=== PATIENT | male | born 1965 | race Caucasian/White ===

== ENCOUNTER 2018-09-07 17:20 | Inpatient (IN) | payer OTHER ==
[2018-09-07] MEDS ORDERED: HYDROmorphone 1 MG/ML Syringe IVPUSH ONE (18:07)
[2018-09-07] MEDS ORDERED: Metoclopramide 10 MG/2 ML SDV IVPUSH ONE (18:07)
[2018-09-07] MEDS ORDERED: Ibuprofen 600 MG Tab PO ONE (18:07)
--- NOTE | 2018-09-07 18:12 | EDM.PDOC ---
ED HPI GENERAL MEDICAL PROBLEM - General Chief Complaint: Fever Stated Complaint: BODY ACHE/WEAK/FEVER Time Seen by Provider: 09/07/18 18:05 Source of Information: Reports: Patient History Limitations: Reports: No Limitations - History of Present Illness INITIAL COMMENTS - FREE TEXT/NARRATIVE: 53-year-old male presents to the ED from the [place] clinic where he attended PA today. She reports she's been sick for 5 days. Sudden onset of high fever body aches heart paroxysmal cough. Hasn't eaten in 5 days. Extremely weak. O2 sats on admission to the ED were only 74%. He also had central cyanosis. Was immediately on nasal cannula at 3 L/m and ends 5 L/m and still could not get above 90%. Nursing staff and placed him on a nonrebreather mask at 10 L/m which achieved O2 sats of 96%. Has pleuritic pain base of his right lung with deep breathing and coughing. States he is coughing up a brownish discharge without any blood. He initially had no ONSET OF NAUSEA AND VOMITING WITH ILLNESS BUT NO DIARRHEA. EXTREMELY WEAK LIGHTHEADED. HE IS FEBRILE AT THE TIME OF ADMISSION TO THE ED. EACH CRITERIA FOR SEPSIS. Temperature is nearly 104. Blood pressure is good at 150 systolic. Patient states she's been taking Tylenol and meloxicam for fever and body ache relief patient did not receive a flu shot this year. Onset: Sudden Onset Date: 09/02/18 Duration: Day(s):, Constant, Getting Worse Location: Reports: Chest (Severe harsh paroxysmal productive cough.) Quality: Reports: Other (Generalized myalgia) Severity: Severe (Severe shortness of breath on minimal exertion) Improves with: Reports: Rest Worsens with: Reports: Movement Context: Reports: Sick Contact (Another fellow at work was ill with influenza A. ). Denies: Activity, Exercise (Reactivity place amount immediately as far as dyspnea.), Lifting Associated Symptoms: Reports: Chest Pain (With coughing.), Cough, cough w sputum ( Some pleuritic pain basal right lung is well), Diaphoresis, Fever/ Chills ( H colored sputum ), Headaches, Loss of Appetite, Malaise, Nausea/ Vomiting, Shortness of Breath, Weakness (With initial onset of illness he hasn' t had a feed or drink much for the last 5 days.). Denies: Confusion, Rash, Seizure, Syncope Treatments [employer]: Reports: Acetaminophen, Other (see below) (Meloxicam) - Related Data Allergies Allergy/AdvReac Type Severity Reaction Status Date / Time No Known Allergies Allergy Verified 07/22/16 14:01 Home Meds: Home Meds Cholecalciferol (Vitamin D3) [Vitamin D3] 1,000 units PO DAILY 07/22/16 [History ] Fosinopril Sodium 40 mg PO DAILY 07/22/16 [History] Meloxicam 15 mg PO DAILY 07/22/16 [History] Metoprolol Tartrate [Lopressor] 25 mg PO BID 07/22/16 [History] Furosemide [Lasix] 20 mg PO DAILY 09/07/18 [History] Potassium Chloride 1 tab PO DAILY 09/07/18 [History] metFORMIN [Glucophage XR] 1,000 mg PO BIDMEALS 09/07/18 [History] Past Medical History Cardiovascular History: Reports: Hypertension Respiratory History: Reports: None Gastrointestinal History: Reports: None - Past Surgical History Other Musculoskeletal Surgeries/Procedures:: patient had surgery on his right hand. 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 Denies: Pleuritic Chest Pain, Hemoptysis (Brown colored sputum) Cardiovascular: Reports: Chest Pain, Blood Pressure Problem (With deep breathing and coughing), Dyspnea on Exertion (Chronic lower extremity edema and venous stasis dermatitis), Edema, Lightheadedness. Denies: Claudication, Orthopnea ( mild hypertension) Endocrine: Reports: Fatigue GI/Abdominal: Reports: Decreased Appetite, Nausea, Vomiting (Intermittent waves of nausea running at onset of illness but not the last 2 days.). Denies: Diarrhea : Reports: Other (Hardly making any urine. States it's very dark and gilbret.) Musculoskeletal: Reports: Other (Generalized myalgia. Heart Rk's neck back thighs) Skin: Reports: Other (Chronic venous venous stasis dermatitis both lower extremities with very dry skin.) Neurological: Reports: Dizziness, Headache, Difficulty Walking, Weakness. Denies: Paresthesia, Seizure, Syncope, Tremors, Change in Speech, Gait Disturbance Psychiatric: Reports: No Symptoms Hematologic/Lymphatic: Reports: No Symptoms Immunologic: Reports: No Symptoms ED EXAM, GENERAL - Physical Exam Exam: See Below Exam Limited By: No Limitations General Appearance: Alert, WD/WN, Moderate Distress, Other (Productive sounding cough.) Eye Exam: Bilateral Eye: Normal Inspection Ears: Normal TMs Throat/Mouth: Other (Tongue is dry and coated. Oropharynx is mildly inflamed-- no exudate. Appears to be more inflamed from coughing.) Head: Atraumatic, Normocephalic Neck: Normal Inspection, Supple, Non-Tender, Full Range of Motion. No: Lymphadenopathy (L), Lymphadenopathy (R) Respiratory/Chest: Chest Non-Tender, Respiratory Distress (26-28/m. O2 sats only 74% on initial admission with central cyanosis), Decreased Breath Sounds ( expiratory wheezes. decreased breath sounds to the lower right lung. ), Rales ( Rhonchi throughout the posterior right lung field), Rhonchi, Wheezing ( rales right lung field) Cardiovascular: Normal Peripheral Pulses, Regular Rate, Rhythm, No Edema, No Gallop, No Murmur, No Rub, Tachycardia, Systolic Murmur (A1 on his 6 best heard at the left lateral sternal border compatible with mild aortic stenosis.) Peripheral Pulses: 2+: Posterior Tibial (L), Posterior Tibial (R), Dorsalis Pedis (L), Dorsalis Pedis (R) GI/Abdominal: Normal Bowel Sounds, Soft, Non-Tender, No Organomegaly, No Abnormal Bruit, No Mass, Pelvis Stable, Other (Moderately obese.). No: Guarding , Rigid, Rebound, Tender Back Exam: Normal Inspection, Full Range of Motion. No: CVA Tenderness (L), CVA Tenderness (R) Extremities: Normal Range of Motion, Non-Tender, Pedal Edema (2+ pitting edema) , Other ( distal one third of the tib-fib bilaterally.) Neurological: Alert (venous stasis dermatitis both lower extremities with very dry scaly skin. ), Oriented, CN II-XII Intact, Normal Cognition Psychiatric: Anxious Skin Exam: Warm, Dry, Intact, Normal Color, No Rash EKG INTERPRETATION EKG Date: 09/07/18 Time: 18:20 Rhythm: NSR Rate (Beats/Min): 97 [place]: Normal P-Wave: Present QRS: Other (There are Q waves V1 and V2. Consider old anteroseptal myocardial infarction patient has no history of [place].) ST-T: Other QT: Normal EKG Interpretation Comments: Abnormal ECG Course - Vital Signs Last Recorded V/S: Last Vital Signs Temp 39.7 C H 09/07/18 17:33 Pulse 105 H 09/07/18 17:33 Resp 26 H 09/07/18 17:33 BP 150/92 H 09/07/18 17:33 Pulse Ox 74 L 09/07/18 17:33 - Orders/Labs/Meds Orders: Active Orders 24 hr Category Date Time Status Admission Status [Patient Status] [ADT] Routine ADT 09/07/18 20:38 Ordered EKG Documentation Completion [RC] STAT Care 09/07/18 18:07 Active Oxygen Therapy [RC] ASDIRECTED Care 09/07/18 18:09 Active Chest 1V Frontal [CR] Stat Exams 09/07/18 18:07 Taken CULTURE BLOOD [BC] Stat Lab 09/07/18 18:30 Received CULTURE BLOOD [BC] Stat Lab 09/07/18 18:45 Received Dextrose 5%-0.9% NaCl [Dextrose 5%-Normal Saline] 1,000 Med 09/07/18 18:15 Active ml IV ASDIRECTED Dextrose 5%-0.9% NaCl [Dextrose 5%-Normal Saline] 1,000 Med 09/07/18 20:45 Active ml IV ASDIRECTED Blood Culture x2 Reflex Set [OM.PC] Stat Oth 09/07/18 18:09 Ordered Medication Orders Dextrose/Sodium Chloride (Dextrose 5%-Normal Saline) 1,000 mls @ 999 mls/hr IV ASDIRECTED ABIEL Last Admin: 09/07/18 19:08 Dose: 999 mls/hr Dextrose/Sodium Chloride (Dextrose 5%-Normal Saline) 1,000 mls @ 200 mls/hr IV ASDIRECTED ABIEL Labs: Laboratory Tests 09/07/18 09/07/18 09/07/18 Range/Units 17:54 17:54 17:54 WBC 3.73 L (4.23-9.07) K/mm3 RBC 5.52 (4.63-6.08) M/mm3 Hgb 16.4 (13.7-17.5) gm/L Hct 50.1 (40.1-51.0) % MCV 90.8 (79.0-92.2) fl MCH 29.7 (25.7-32.2) pg MCHC 32.7 (32.2-35.5) g/dl RDW Std Deviation 47.0 H (35.1-43.9) fL Plt Count 144 L (163-337) K/mm3 MPV 9.7 (9.4-12.3) fl Neutrophils % (Manual) 80 H (40-60) % Band Neutrophils % 2 (0-10) % Lymphocytes % (Manual) 13 L (20-40) % Atypical Lymphs % 0 % Monocytes % (Manual) 5 (2-10) % Eosinophils % (Manual) 0 L (0.8-7.0) % Basophils % (Manual) 0 L (0.2-1.2) Platelet Estimate Adequate RBC Morph Comment Normal Puncture Site ABG pH (7.35-7.45) ABG pCO2 (35.0-45.0) mmHg ABG pO2 (80.0-100.0) mmHg ABG HCO3 (22.0-26.0) meq/L ABG O2 Saturation (96.0-97.0) % ABG Base Excess (-2-2.0) A-a Gradient mmHg O2 Delivery Device Oxygen Flow Rate FiO2 (21.00-100.00) % Sodium 136 (136-145) mEq/L Potassium 4.1 (3.5-5.1) mEq/L Chloride 100 (98-107) mEq/L Carbon Dioxide 28 (21-32) mEq/L Anion Gap 12.1 (5-15) BUN 21 H (7-18) mg/dL Creatinine 1.1 (0.7-1.3) mg/dL Est Cr Clr Drug Dosing 83.28 mL/min Estimated GFR (MDRD) > 60 (>60) mL/min BUN/Creatinine Ratio 19.1 H (14-18) Glucose 145 H (74-106) mg/dL Lactic Acid (0.4-2.0) mmol/L Calcium 8.6 (8.5-10.1) mg/dL Magnesium 1.7 L (1.8-2.4) mg/dl Total Bilirubin 0.3 (0.2-1.0) mg/dL AST 64 H (15-37) U/L ALT 61 (16-63) U/L Alkaline Phosphatase 54 (46-116) U/L Troponin I 0.017 (0.00-0.056) ng/mL C-Reactive Protein 19.2 H* (<1.0) mg/dL NT-Pro-B Natriuret Pep 37 (0-125) pg/mL Total Protein 7.2 (6.4-8.2) g/dl Albumin 2.6 L (3.4-5.0) g/dl Globulin 4.6 gm/dL Albumin/Globulin Ratio 0.6 L (1-2) Mycoplasma pneumon IgM Negative (NEGATIVE) 09/07/18 09/07/18 Range/Units 18:26 18:30 WBC (4.23-9.07) K/mm3 RBC (4.63-6.08) M/mm3 Hgb (13.7-17.5) gm/L Hct (40.1-51.0) % MCV (79.0-92.2) fl MCH (25.7-32.2) pg MCHC (32.2-35.5) g/dl RDW Std Deviation (35.1-43.9) fL Plt Count (163-337) K/mm3 MPV (9.4-12.3) fl Neutrophils % (Manual) (40-60) % Band Neutrophils % (0-10) % Lymphocytes % (Manual) (20-40) % Atypical Lymphs % % Monocytes % (Manual) (2-10) % Eosinophils % (Manual) (0.8-7.0) % Basophils % (Manual) (0.2-1.2) Platelet Estimate RBC Morph Comment Puncture Site Lt radial ABG pH 7.43 (7.35-7.45) ABG pCO2 44.4 (35.0-45.0) mmHg ABG pO2 67.0 L (80.0-100.0) mmHg ABG HCO3 28.9 H (22.0-26.0) meq/L ABG O2 Saturation 90.8 L (96.0-97.0) % ABG Base Excess 4.4 H (-2-2.0) A-a Gradient 134 mmHg O2 Delivery Device Nasal cannula Oxygen Flow Rate 5.0 FiO2 40.00 (21.00-100.00) % Sodium (136-145) mEq/L Potassium (3.5-5.1) mEq/L Chloride (98-107) mEq/L Carbon Dioxide (21-32) mEq/L Anion Gap (5-15) BUN (7-18) mg/dL Creatinine (0.7-1.3) mg/dL Est Cr Clr Drug Dosing mL/min Estimated GFR (MDRD) (>60) mL/min BUN/Creatinine Ratio (14-18) Glucose (74-106) mg/dL Lactic Acid 0.9 (0.4-2.0) mmol/L Calcium (8.5-10.1) mg/dL Magnesium (1.8-2.4) mg/dl Total Bilirubin (0.2-1.0) mg/dL AST (15-37) U/L ALT (16-63) U/L Alkaline Phosphatase (46-116) U/L Troponin I (0.00-0.056) ng/mL C-Reactive Protein (<1.0) mg/dL NT-Pro-B Natriuret Pep (0-125) pg/mL Total Protein (6.4-8.2) g/dl Albumin (3.4-5.0) g/dl Globulin gm/dL Albumin/Globulin Ratio (1-2) Mycoplasma pneumon IgM (NEGATIVE) Meds: Medications Generic Name Dose Route Start Last Admin Trade Name Freq PRN Reason Stop Dose Admin Dextrose/Sodium Chloride 1,000 mls @ 999 mls/hr 09/07/18 18:15 09/07/18 19:08 Dextrose 5%-Normal Saline IV 999 mls/hr ASDIRECTED ABIEL Administration Dextrose/Sodium Chloride 1,000 mls @ 200 mls/hr 09/07/18 20:45 Dextrose 5%-Normal Saline IV ASDIRECTED ABIEL Discontinued Medications Generic Name Dose Route Start Last Admin Trade Name Freq PRN Reason Stop Dose Admin Acetaminophen 975 mg 09/07/18 20:01 09/07/18 20:10 Tylenol PO 09/07/18 20:02 975 mg NOW ONE Administration Hydromorphone HCl 1 mg 09/07/18 18:07 09/07/18 19:02 Dilaudid IVPUSH 09/07/18 18:08 1 mg ONETIME ONE Administration Levofloxacin/Dextrose 750 mg/ 150 mls @ 100 mls/hr 09/07/18 19:08 09/07/18 20 :08 Premix IV 09/07/18 20:37 100 mls/hr ONETIME ONE Administration Ibuprofen 600 mg 09/07/18 18:07 09/07/18 19:07 Motrin PO 09/07/18 18:08 600 mg ONETIME ONE Administration Metoclopramide HCl 10 mg 09/07/18 18:07 09/07/18 19:04 Reglan IVPUSH 09/07/18 18:08 10 mg ONETIME ONE Administration - Radiology Interpretation Free Text/Narrative:: 53-year-old male presents to the ED from the [place] clinic where he attended nurse practitioner. He has been ill for 5 days with sudden onset of rigors chills and initially some nausea and vomiting. He states he has not been able to eat or drink much at all for the last 5 days. He has been exposed to a coworker with influenza A. He did not receive a flu shot this year. Examination reveals him to be hypoxic on room air at 74%. He is somewhat peripherally vasoconstricted however from dehydration. Initial treatment with nonrebreather mask at 10 L/m to get him up into the 90s. He is currently on 5 L/m by nasal cannula with O2 sats of 92-93%. Plan ABGs. Chest x-ray because clinically he likely has right lower lobar pneumonia. He is febrile with a temp to 104 and will receive Motrin 600 mg by mouth for fever relief. IV will be D5 normal saline at open. Septic workup will be completed. This will include influenza screen. - Re-Assessments/Exams Free Text/Narrative Re-Assessment/Exam: 09/07/18 19:00: Chest x-ray reveals bilateral pneumonic infiltrates. This involves all 3 lobes on the right side and the left lower lobe. 09/07/18 19:51 White count is low at 3.73 with 80% neutrophils and 2% bands. Hemoglobin is 16.4 with hematocrit of 50.1 indicating some degree of hemoconcentration. Will comes 144,000. ABGs revealed a pH of 7.43 PCO2 of 44.4 and a PaO2 of 67.0 on 5 L by nasal cannula. Oxygen saturation is 90.8%. Sodium 136 with a potassium of 4.1. Chloride 100 with a bicarbonate 28. And a gap is 12.1. B1 is 21 with a creatinine of 1.1. GFR is greater than 60. BUN/creatinine ratio is 19.1 mildly elevated glucose is 145. Lactic acid is 0.9. Calcium is 8.6. Magnesium slightly low at 1.7. Liver function reveals an AST of 64. [place] ALT is 61 alkaline phosphatase days is 54 bilirubin is 0.3. Troponin I is less than 0.017. C-reactive protein is 19.2. BNP is 37. Total protein 7.2 with an albumin fraction at low is low at 2.6. Mycoplasma pneumonia IgM titer is negative. O2 will be increased to 6 L/m by nasal cannula. On reexamination he is able to talk much easier but he is still very warm to palpation probably greater than 102.5. I'm going to give her 975 mg of Tylenol for fever relief as well.. Motrin 600 mg earlier. Of note influenza screen is negative. I will discuss the case with Dr. Grant with a view to admission to the hospital. At present he is now working out hard to breathe and sats are remaining around 92% on 6 L per nasal cannula. I have some concerns that his respiratory function may deteriorate before the antibiotics have time to work and he may require BiPAP transiently. 09/07/18 20:[address] Grant and he has agreed to admission to the med surgery floor on telemetry. Admission orders will be placed. Departure - Departure Time of Disposition: 20:44 Disposition: Admitted As Inpatient 64 Condition: Serious Clinical Impression: Febrile illness, Hypoxia Bilateral pneumonia Qualifiers: Pneumonia type: due to unspecified organism Lung location: lower lobe of lung Qualified Code(s): J18.1 - Lobar pneumonia, unspecified organism - Discharge Information *PRESCRIPTION DRUG MONITORING PROGRAM REVIEWED*: Not Applicable *COPY OF PRESCRIPTION DRUG MONITORING REPORT IN PATIENT OCTAVIO: Not Applicable Referrals: PCP,Unknown [Primary Care Provider] - Forms: ED Department Discharge - My Orders Last 24 Hours: My Active Orders 09/07/18 18:07 EKG Documentation Completion [RC] STAT Chest 1V Frontal [CR] Stat 09/07/18 18:09 Oxygen Therapy [RC] ASDIRECTED Blood Culture x2 Reflex Set [OM.PC] Stat 09/07/18 18:15 Dextrose 5%-0.9% NaCl [Dextrose 5%-Normal Saline] 1,000 ml IV ASDIRECTED 09/07/18 18:30 CULTURE BLOOD [BC] Stat 09/07/18 18:45 CULTURE BLOOD [BC] Stat 09/07/18 20:38 Admission Status [Patient Status] [ADT] Routine 09/07/18 20:45 Dextrose 5%-0.9% NaCl [Dextrose 5%-Normal Saline] 1,000 ml IV ASDIRECTED - Assessment/Plan Last 24 Hours: My Active Orders 09/07/18 18:07 EKG Documentation Completion [RC] STAT Chest 1V Frontal [CR] Stat 09/07/18 18:09 Oxygen Therapy [RC] ASDIRECTED Blood Culture x2 Reflex Set [OM.PC] Stat 09/07/18 18:15 Dextrose 5%-0.9% NaCl [Dextrose 5%-Normal Saline] 1,000 ml IV ASDIRECTED 09/07/18 18:30 CULTURE BLOOD [BC] Stat 09/07/18 18:45 CULTURE BLOOD [BC] Stat 09/07/18 20:38 Admission Status [Patient Status] [ADT] Routine 09/07/18 20:45 Dextrose 5%-0.9% NaCl [Dextrose 5%-Normal Saline] 1,000 ml IV ASDIRECTED
[2018-09-07] MEDS ORDERED: Dextrose 5%-0.9% NaCl 1,000 ML IV SCH ×2 (18:15→20:45)
[2018-09-07] MEDS ORDERED: Levofloxacin/Dextrose 5%-Water 750 MG in Premix Bag 1 BAG IV ONE (19:08)
[2018-09-07] MEDS ORDERED: Acetaminophen 325 MG Tab PO ONE (20:01)
[2018-09-07] MEDS ORDERED: Metoprolol Tartrate 5 MG/5 ML SDV IVPUSH PRN (22:25)
[2018-09-07] MEDS ORDERED: hydrALAZINE 20 MG/ML SDV IVPUSH PRN (22:25)
[2018-09-07] MEDS ORDERED: LORazepam 2 MG/ML SDV IVPUSH PRN (22:25)
[2018-09-07] MEDS ORDERED: Bisacodyl 5 MG Tab PO PRN (22:27)
[2018-09-07] MEDS ORDERED: Polyethylene Glycol 3350 Powder 17 GM Packet PO PRN (22:27)
[2018-09-07] MEDS ORDERED: Docusate Sodium 100 MG Cap PO PRN (22:27)
[2018-09-07] MEDS ORDERED: Ondansetron 4 MG/2 ML SDV IV PRN (22:27)
[2018-09-07] MEDS ORDERED: Promethazine 6.25 MG in Sodium Chloride 0.9% 50 ML IV PRN (22:27)
--- NOTE | 2018-09-07 22:43 | PCM.SN ---
- Free Text/Narrative Note: Briefly seen and examined patient at bedside. He comes in feeling ill for the pas 5 days. He reports having fever, chills, nausea and vomiting initially; now paroxysmal cough, generalized body aches and pain, reduced appetite, diaphoresis , shortness of breath, malaise and generalized weakness. On initial presentation to ED he was found hypoxic with an O2 sat as low at 74%. He was immediately provided supplemental O2 and eventually switched to NR at 10L to improve his O2 Sat 96%. Riki carries no hx/o COPD or Pulmonary Disease. He has no supplemental O2 and not on BIPAP/CPAP. However he is morbidly obese with a BMI of 42.2. His initial work up in ED shows a WBC of 3.73 with Neutrophils of 80%. His initial ABG shows a pH of 7.43, pCO2 of 44.4, pO2 of 67, HCO3 of 28.9 and O2 Sat of 09.8 % on 5L NC. His chemistry is significant for BUN of 21, BS of 145, Mg of 1.7, AST of 64, CRP of 19.2, and Albumin of 2.6. He is mycoplasma and influenza both negative on screening. His initial vitals in ED shows a temp of 39.7, HR of 105 , RR of 26 and O2 Sat of 74% on RA. His chest x-ray shows increased density on bilateral lungs. Patient meets criteria of Sepsis (Temp, WBC, Tachypneic and pulmonary infiltrates). He also meets criteria of Pickwickian Syndrome/NBA/OHS. Patient has gotten a one time dose of IV Levaquin in ED. We will continue IV Levaquin and add IV Zosyn 4.5 mg IV Q6H for pharmacy to dose. Screen for NBA in AM. PRN IV Morphine or Dyspnea/Chest pain. Dietary and Diabetic Consultation in AM. Offered chest CT scan for further details since his plain chest imaging study is poor in quality (he agreed). Added IS/FV, A1C level, Thyroid Panel, Vit D Level, Viral Panel and Strep pneumonia Ag.
[2018-09-07] MEDS ORDERED: Piperacillin/Tazobactam 4.5 GM in Sodium Chloride 0.9% 100 ML IV ONE (23:00)
[2018-09-07] MEDS ORDERED: Magnesium Oxide 400 MG Tab PO SCH (23:30)
[2018-09-08] MEDS: Acetaminophen 325 MG Tab PO PRN ×3 (00:05→20:20)
[2018-09-08] MEDS: Albuterol/Ipratropium 3.0-0.5 MG/3 ML Neb Soln NEB PRN (05:33)
[2018-09-08] MEDS: guaiFENesin/Dextromethorphan 100-10 MG/5 ML Soln 5 ML Cup PO SCH ×3 (06:04→20:19)
[2018-09-08] MEDS: metFORMIN 500 MG Tab PO SCH ×2 (06:05→16:09)
[2018-09-08] MEDS: Piperacillin/Tazobactam 4.5 GM in Sodium Chloride 0.9% 100 ML IV SCH ×3 (06:06→22:09)
[2018-09-08] MEDS: Insulin Lispro 100 Units/ML 3 ML Vial SUBCUT SCH ×4 (06:40→21:06)
[2018-09-08 07:42] LABS: HEMOGLOBIN A1C 6.7 % (4.50-6.20)
[2018-09-08 07:50] LABS: VITAMIN D,25-HYDROXY 37.8 ng/ml (30.0-100.0)
[2018-09-08] MEDS ORDERED: methylPREDNISolone Sodium Succinate 40 MG/1 ML SDV IVPUSH ONE (08:03)
--- NOTE | 2018-09-08 08:09 | PCM.HP ---
H&P History of Present Illness - General Date of Service: 09/08/18 Admit Problem/Dx: Admission Diagnosis/Problem Admission Diagnosis/Problem Pneumonia Source of Information: Patient, Old Records, Provider, RN, RN Notes Reviewed History Limitations: Reports: Respiratory Distress - History of Present Illness Initial Comments - Free Text/Narative: Riki Dinh is a 53 yo male who [facility]. Reports he's been feeling sick for about the past 5 days with high fever, body aches, paroxysmal cough. Reports he hasn't eaten in the past 5 days and is extremely weak. On arrival was found to have saturations of 74% and central cyanosis. Is placed on 3 L nasal cannula which was advanced to 5 and he was still unable to get above 90% saturation. He was then placed on nonrebreather mask at 10 L which brought up to 96%. At her pain at the base was right lung with deep breathing and coughing. Reports brownish discharge without any blood when coughing. Reports symptoms began with nausea and vomiting but no diarrhea. He feels weak and lightheaded. In the ED temperature is 100.4 degrees and he meets criteria for sepsis. Blood pressures 150s systolic. Reports been taking Tylenol [place] walks he can for fever and body ache relief. He did not receive a flu shot this year. In the ED temp was 39.7C. Pulse 105. Respirations 26. Blood pressure 150/ 92. Pulse ox 74%. EKG was obtained showing sinus rhythm at 97 bpm. 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 Patient has no history of [facility]. There is no ST segment abnormalities. Labs are obtained: WBC is low at 3.73. Hemoglobin 16.4. Hematocrit 50.1. He is normocytic. Platelets are low 144,000. Neutrophils are elevated at 80%. There is 2% band neutrophils noted. Sodium is 136. Potassium 4.1. Chloride 100. Carbon dioxide 28. Anion gap was 12.1. BUN is 21. Creatinine 1.1. EGFR screen and 60. Glucose is 145. Calcium is 8.6. Magnesium 1.7. Bilirubin 0.3. AST 64, ALT 61, alkaline phosphatase 54. Troponin is 0.017. CRP is 19.2. BNP is 37. Protein 7.2. Albumin is 2.6. ABGs obtained in the left radial showing a pH of 7.43. PCO2 of 44.4. PO2 67. Bicarbonate 28.9. O2 saturation of 90.8. Base excess of 4.4. This is obtained on 5 L via nasal cannula. Lactic acid is 0.9. He is given a fluid bolus and started on IV fluids. He is also given Tylenol, Dilaudid, ibuprofen, and Reglan. Chest x- rays obtained and interpreted by Dr. Car as "1. Probable perihilar areas of pneumonia on both sides. 2. Other incidental findings as noted above." Mycoplasma pneumonia is negative. Influenza screen is negative. UA is obtained showing 1+ protein 1+ occult blood and 10-20 RBCs. It is otherwise negative. 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 He is a full code. His PCP is through the [facility]. - Related Data Allergies/Adverse Reactions: Allergies Allergy/AdvReac Type Severity Reaction Status Date / Time No Known Allergies Allergy Verified 07/22/16 14:01 Home Medications: Home Meds Cholecalciferol (Vitamin D3) [Vitamin D3] 2,000 units PO DAILY 07/22/16 [History ] Fosinopril Sodium 40 mg PO DAILY 07/22/16 [History] Meloxicam 15 mg PO DAILY 07/22/16 [History] Metoprolol Tartrate [Lopressor] 25 mg PO BID 07/22/16 [History] Furosemide [Lasix] 20 mg PO DAILY 09/07/18 [History] Potassium Chloride 10 meq PO DAILY 09/07/18 [History] metFORMIN [Glucophage XR] 1,000 mg PO BIDMEALS 09/07/18 [History] Past Medical History Cardiovascular History: Reports: Hypertension, SOB on Exertion Respiratory History: Reports: Other (See Below) Other Respiratory History: pneumonia in past Gastrointestinal History: Reports: None Genitourinary History: Reports: None Endocrine/Metabolic History: Reports: Diabetes, Type II, Vitamin D Deficiency, Other (See Below) Other Endocrine/Metabolic History: boarderline DM - Past Surgical History Male Surgical History: Reports: None Other Musculoskeletal Surgeries/Procedures:: patient had surgery on his right hand. patient has some nerve damage to his right hand Social & Family History - Family History Family Medical History: Noncontributory - Tobacco Use Smoking Status *Q: Never Smoker Second Hand Smoke Exposure: No - Caffeine Use Caffeine Use: Reports: Coffee - Recreational Drug Use Recreational Drug Use: No - Living Situation & Occupation Living situation: Reports: Single Occupation: Employed H&P Review of Systems - Review of Systems: Review Of Systems: See Below General: Reports: Fever, Chills, Malaise, Weakness, Fatigue, Diaphoresis, Decreased Appetite HEENT: Reports: No Symptoms. Denies: Headaches, Sore Throat Pulmonary: Reports: Shortness of Breath, Wheezing, Pleuritic Chest Pain, Cough, Sputum. Denies: Hemoptysis Cardiovascular: Reports: Edema (chronic ), Blood Pressure Problem. Denies: Chest Pain, Palpitations, Dyspnea on Exertion, Lightheadedness, Syncope Gastrointestinal: Reports: No Symptoms. Denies: Abdominal Pain, Constipation, Diarrhea, Nausea, Vomiting Genitourinary: Reports: No Symptoms Musculoskeletal: Reports: Muscle Pain (generalized ) Skin: Reports: No Symptoms Psychiatric: Reports: No Symptoms Neurological: Reports: No Symptoms, Change in Speech Immunologic: Reports: No Symptoms Exam - Exam Exam: See Below - Vital Signs Vital Signs: Last Vital Signs Temp 100.6 F 09/08/18 06:06 Pulse 100 09/08/18 06:06 Resp 26 H 09/08/18 06:06 BP 122/74 09/07/18 21:41 Pulse Ox 90 L 09/08/18 06:06 Weight: 312 lb - Exam Quality Assessment: Supplemental Oxygen, DVT Prophylaxis General: Alert, Oriented, Cooperative, Mild Distress HEENT: Conjunctiva Clear, EACs Clear, EOMI, Hearing Intact, Mucosa Moist & [place] , Nares Patent, Posterior Pharynx Clear, PERRLA Neck: Supple, Trachea Midline Lungs: Decreased Breath Sounds, Rhonchi, Wheezing, Other (tachypnic ) Cardiovascular: Regular Rate, Regular Rhythm GI/Abdominal Exam: Normal Bowel Sounds, Soft, Non-Tender, No Distention, No Abnormal Bruit (Male) Exam: Deferred Rectal (Males) Exam: Deferred Back Exam: Normal Inspection, Full Range of Motion Extremities: Normal Inspection, Normal Range of Motion, Non-Tender, Normal Capillary Refill, Pedal Edema (2+ bilateral ), Other (discoloration compatable with chroinc venous stasis) Peripheral Pulses: 3+: Radial (L), Radial (R), Dorsalis Pedis (L), Dorsalis Pedis (R) Skin: Warm, Dry, Intact Neurological: Cranial Nerves Intact (grossly ) Neuro Extensive - Mental Status: Alert, Oriented x3, Normal Mood/Affect - Patient Data Lab Results Last 24 hrs: Laboratory Results - last 24 hr 09/07/18 09/07/18 09/07/18 Range/Units 17:54 17:54 17:54 WBC 3.73 L (4.23-9.07) K/mm3 RBC 5.52 (4.63-6.08) M/mm3 Hgb 16.4 (13.7-17.5) gm/L Hct 50.1 (40.1-51.0) % MCV 90.8 (79.0-92.2) fl MCH 29.7 (25.7-32.2) pg MCHC 32.7 (32.2-35.5) g/dl RDW Std Deviation 47.0 H (35.1-43.9) fL Plt Count 144 L (163-337) K/mm3 MPV 9.7 (9.4-12.3) fl Neut % (Auto) (34.0-67.9) % Lymph % (Auto) (21.8-53.1) % [place] % (Auto) (5.3-12.2) % Eos % (Auto) (0.8-7.0) Baso % (Auto) (0.1-1.2) % Neut # (Auto) (1.78-5.38) K/mm3 Lymph # (Auto) (1.32-3.57) K/mm3 [place] # (Auto) (0.30-0.82) K/mm3 Eos # (Auto) (0.04-0.54) K/mm3 Baso # (Auto) (0.01-0.08) K/mm3 Neutrophils % (Manual) 80 H (40-60) % Band Neutrophils % 2 (0-10) % Lymphocytes % (Manual) 13 L (20-40) % Atypical Lymphs % 0 % Monocytes % (Manual) 5 (2-10) % Eosinophils % (Manual) 0 L (0.8-7.0) % Basophils % (Manual) 0 L (0.2-1.2) Platelet Estimate Adequate RBC Morph Comment Normal Puncture Site ABG pH (7.35-7.45) ABG pCO2 (35.0-45.0) mmHg ABG pO2 (80.0-100.0) mmHg ABG HCO3 (22.0-26.0) meq/L ABG O2 Saturation (96.0-97.0) % ABG Base Excess (-2-2.0) [place] Test A-a Gradient mmHg O2 Delivery Device Oxygen Flow Rate FiO2 (21.00-100.00) % Sodium 136 (136-145) mEq/L Potassium 4.1 (3.5-5.1) mEq/L Chloride 100 (98-107) mEq/L Carbon Dioxide 28 (21-32) mEq/L Anion Gap 12.1 (5-15) BUN 21 H (7-18) mg/dL Creatinine 1.1 (0.7-1.3) mg/dL Est Cr Clr Drug Dosing 83.28 mL/min Estimated GFR (MDRD) > 60 (>60) mL/min BUN/Creatinine Ratio 19.1 H (14-18) Glucose 145 H (74-106) mg/dL POC Glucose (70-105) mg/dL Hemoglobin A1c (4.50-6.20) % Lactic Acid (0.4-2.0) mmol/L Calcium 8.6 (8.5-10.1) mg/dL Magnesium 1.7 L (1.8-2.4) mg/dl Total Bilirubin 0.3 (0.2-1.0) mg/dL AST 64 H (15-37) U/L ALT 61 (16-63) U/L Alkaline Phosphatase 54 (46-116) U/L Troponin I 0.017 (0.00-0.056) ng/mL C-Reactive Protein 19.2 H* (<1.0) mg/dL NT-Pro-B Natriuret Pep 37 (0-125) pg/mL Total Protein 7.2 (6.4-8.2) g/dl Albumin 2.6 L (3.4-5.0) g/dl Globulin 4.6 gm/dL Albumin/Globulin Ratio 0.6 L (1-2) Triglycerides (<150) mg/dL Cholesterol (<200) mg/dL LDL Cholesterol Direct (<100) mg/dL HDL Cholesterol (40-59) mg/dL Vitamin D 25-Hydroxy (30.0-100.0) ng/ml Free T4 (0.76-1.46) ng/dL TSH 3rd Generation (0.358-3.74) uIU/mL Urine Color (Yellow) Urine Appearance (Clear) Urine pH (5.0-8.0) Ur Specific [place] (1.005-1.030) Urine Protein (Negative) Urine Glucose (UA) (Negative) Urine Ketones (Negative) Urine Occult Blood (Negative) Urine Nitrite (Negative) Urine Bilirubin (Negative) Urine Urobilinogen (0.2-1.0) Ur Leukocyte Esterase (Negative) Urine RBC (0-5) /hpf Urine WBC (0-5) /hpf Ur Epithelial Cells (0-5) /hpf Urine Bacteria (FEW) /hpf Urine Mucus (FEW) /hpf Mycoplasma pneumon IgM Negative (NEGATIVE) 09/07/18 09/07/18 09/08/18 Range/Units 18:26 18:30 05:15 WBC (4.23-9.07) K/mm3 RBC (4.63-6.08) M/mm3 Hgb (13.7-17.5) gm/L Hct (40.1-51.0) % MCV (79.0-92.2) fl MCH (25.7-32.2) pg MCHC (32.2-35.5) g/dl RDW Std Deviation (35.1-43.9) fL Plt Count (163-337) K/mm3 MPV (9.4-12.3) fl Neut % (Auto) (34.0-67.9) % Lymph % (Auto) (21.8-53.1) % [place] % (Auto) (5.3-12.2) % Eos % (Auto) (0.8-7.0) Baso % (Auto) (0.1-1.2) % Neut # (Auto) (1.78-5.38) K/mm3 Lymph # (Auto) (1.32-3.57) K/mm3 [place] # (Auto) (0.30-0.82) K/mm3 Eos # (Auto) (0.04-0.54) K/mm3 Baso # (Auto) (0.01-0.08) K/mm3 Neutrophils % (Manual) (40-60) % Band Neutrophils % (0-10) % Lymphocytes % (Manual) (20-40) % Atypical Lymphs % % Monocytes % (Manual) (2-10) % Eosinophils % (Manual) (0.8-7.0) % Basophils % (Manual) (0.2-1.2) Platelet Estimate RBC Morph Comment Puncture Site Lt radial ABG pH 7.43 (7.35-7.45) ABG pCO2 44.4 (35.0-45.0) mmHg ABG pO2 67.0 L (80.0-100.0) mmHg ABG HCO3 28.9 H (22.0-26.0) meq/L ABG O2 Saturation 90.8 L (96.0-97.0) % ABG Base Excess 4.4 H (-2-2.0) [place] Test A-a Gradient 134 mmHg O2 Delivery Device Nasal cannula Oxygen Flow Rate 5.0 FiO2 40.00 (21.00-100.00) % Sodium (136-145) mEq/L Potassium (3.5-5.1) mEq/L Chloride (98-107) mEq/L Carbon Dioxide (21-32) mEq/L Anion Gap (5-15) BUN (7-18) mg/dL Creatinine (0.7-1.3) mg/dL Est Cr Clr Drug Dosing mL/min Estimated GFR (MDRD) (>60) mL/min BUN/Creatinine Ratio (14-18) Glucose (74-106) mg/dL POC Glucose (70-105) mg/dL Hemoglobin A1c (4.50-6.20) % Lactic Acid 0.9 (0.4-2.0) mmol/L Calcium (8.5-10.1) mg/dL Magnesium (1.8-2.4) mg/dl Total Bilirubin (0.2-1.0) mg/dL AST (15-37) U/L ALT (16-63) U/L Alkaline Phosphatase (46-116) U/L Troponin I (0.00-0.056) ng/mL C-Reactive Protein (<1.0) mg/dL NT-Pro-B Natriuret Pep (0-125) pg/mL Total Protein (6.4-8.2) g/dl Albumin (3.4-5.0) g/dl Globulin gm/dL Albumin/Globulin Ratio (1-2) Triglycerides (<150) mg/dL Cholesterol (<200) mg/dL LDL Cholesterol Direct (<100) mg/dL HDL Cholesterol (40-59) mg/dL Vitamin D 25-Hydroxy (30.0-100.0) ng/ml Free T4 (0.76-1.46) ng/dL TSH 3rd Generation (0.358-3.74) uIU/mL Urine Color Yellow (Yellow) Urine Appearance Clear (Clear) Urine pH 5.5 (5.0-8.0) Ur Specific [place] 1.025 (1.005-1.030) Urine Protein 1+ H (Negative) Urine Glucose (UA) Negative (Negative) Urine Ketones Negative (Negative) Urine Occult Blood 1+ H (Negative) Urine Nitrite Negative (Negative) Urine Bilirubin Negative (Negative) Urine Urobilinogen 0.2 (0.2-1.0) Ur Leukocyte Esterase Negative (Negative) Urine RBC 10-20 H (0-5) /hpf Urine WBC 0-5 (0-5) /hpf Ur Epithelial Cells 0-5 (0-5) /hpf Urine Bacteria Few (FEW) /hpf Urine Mucus Few (FEW) /hpf Mycoplasma pneumon IgM (NEGATIVE) 09/08/18 09/08/18 09/08/18 Range/Units 05:54 05:54 05:54 WBC (4.23-9.07) K/mm3 RBC (4.63-6.08) M/mm3 Hgb (13.7-17.5) gm/L Hct (40.1-51.0) % MCV (79.0-92.2) fl MCH (25.7-32.2) pg MCHC (32.2-35.5) g/dl RDW Std Deviation (35.1-43.9) fL Plt Count (163-337) K/mm3 MPV (9.4-12.3) fl Neut % (Auto) (34.0-67.9) % Lymph % (Auto) (21.8-53.1) % [place] % (Auto) (5.3-12.2) % Eos % (Auto) (0.8-7.0) Baso % (Auto) (0.1-1.2) % Neut # (Auto) (1.78-5.38) K/mm3 Lymph # (Auto) (1.32-3.57) K/mm3 [place] # (Auto) (0.30-0.82) K/mm3 Eos # (Auto) (0.04-0.54) K/mm3 Baso # (Auto) (0.01-0.08) K/mm3 Neutrophils % (Manual) (40-60) % Band Neutrophils % (0-10) % Lymphocytes % (Manual) (20-40) % Atypical Lymphs % % Monocytes % (Manual) (2-10) % Eosinophils % (Manual) (0.8-7.0) % Basophils % (Manual) (0.2-1.2) Platelet Estimate RBC Morph Comment Puncture Site ABG pH (7.35-7.45) ABG pCO2 (35.0-45.0) mmHg ABG pO2 (80.0-100.0) mmHg ABG HCO3 (22.0-26.0) meq/L ABG O2 Saturation (96.0-97.0) % ABG Base Excess (-2-2.0) [place] Test A-a Gradient mmHg O2 Delivery Device Oxygen Flow Rate FiO2 (21.00-100.00) % Sodium 139 (136-145) mEq/L Potassium 4.2 (3.5-5.1) mEq/L Chloride 102 (98-107) mEq/L Carbon Dioxide 32 (21-32) mEq/L Anion Gap 9.2 (5-15) BUN 25 H (7-18) mg/dL Creatinine 1.4 H (0.7-1.3) mg/dL Est Cr Clr Drug Dosing 65.44 mL/min Estimated GFR (MDRD) 53 (>60) mL/min BUN/Creatinine Ratio 17.9 (14-18) Glucose 124 H (74-106) mg/dL POC Glucose (70-105) mg/dL Hemoglobin A1c 6.70 H (4.50-6.20) % Lactic Acid (0.4-2.0) mmol/L Calcium 8.4 L (8.5-10.1) mg/dL Magnesium 1.7 L (1.8-2.4) mg/dl Total Bilirubin (0.2-1.0) mg/dL AST (15-37) U/L ALT (16-63) U/L Alkaline Phosphatase (46-116) U/L Troponin I (0.00-0.056) ng/mL C-Reactive Protein 16.3 H* (<1.0) mg/dL NT-Pro-B Natriuret Pep 25 (0-125) pg/mL Total Protein (6.4-8.2) g/dl Albumin (3.4-5.0) g/dl Globulin gm/dL Albumin/Globulin Ratio (1-2) Triglycerides 66 (<150) mg/dL Cholesterol 71 (<200) mg/dL LDL Cholesterol Direct 41 (<100) mg/dL HDL Cholesterol 21.0 L (40-59) mg/dL Vitamin D 25-Hydroxy 37.8 (30.0-100.0) ng/ml Free T4 1.03 (0.76-1.46) ng/dL TSH 3rd Generation 1.123 (0.358-3.74) uIU/mL Urine Color (Yellow) Urine Appearance (Clear) Urine pH (5.0-8.0) Ur Specific [place] (1.005-1.030) Urine Protein (Negative) Urine Glucose (UA) (Negative) Urine Ketones (Negative) Urine Occult Blood (Negative) Urine Nitrite (Negative) Urine Bilirubin (Negative) Urine Urobilinogen (0.2-1.0) Ur Leukocyte Esterase (Negative) Urine RBC (0-5) /hpf Urine WBC (0-5) /hpf Ur Epithelial Cells (0-5) /hpf Urine Bacteria (FEW) /hpf Urine Mucus (FEW) /hpf Mycoplasma pneumon IgM (NEGATIVE) 09/08/18 09/08/18 09/08/18 Range/Units 05:54 06:22 07:32 WBC 4.14 L (4.23-9.07) K/mm3 RBC 5.17 (4.63-6.08) M/mm3 Hgb 15.4 (13.7-17.5) gm/L Hct 48.3 (40.1-51.0) % MCV 93.4 H (79.0-92.2) fl MCH 29.8 (25.7-32.2) pg MCHC 31.9 L (32.2-35.5) g/dl RDW Std Deviation 48.3 H (35.1-43.9) fL Plt Count 117 L (163-337) K/mm3 MPV 9.8 (9.4-12.3) fl Neut % (Auto) 67.4 (34.0-67.9) % Lymph % (Auto) 29.2 (21.8-53.1) % [place] % (Auto) 3.4 L (5.3-12.2) % Eos % (Auto) 0 L (0.8-7.0) Baso % (Auto) 0.0 L (0.1-1.2) % Neut # (Auto) 2.79 (1.78-5.38) K/mm3 Lymph # (Auto) 1.21 L (1.32-3.57) K/mm3 [place] # (Auto) 0.14 L (0.30-0.82) K/mm3 Eos # (Auto) 0.00 L (0.04-0.54) K/mm3 Baso # (Auto) 0.00 L (0.01-0.08) K/mm3 Neutrophils % (Manual) (40-60) % Band Neutrophils % (0-10) % Lymphocytes % (Manual) (20-40) % Atypical Lymphs % % Monocytes % (Manual) (2-10) % Eosinophils % (Manual) (0.8-7.0) % Basophils % (Manual) (0.2-1.2) Platelet Estimate RBC Morph Comment Puncture Site Lt radial ABG pH 7.37 (7.35-7.45) ABG pCO2 50.8 H (35.0-45.0) mmHg ABG pO2 58.0 L (80.0-100.0) mmHg ABG HCO3 28.7 H (22.0-26.0) meq/L ABG O2 Saturation 88.3 L (96.0-97.0) % ABG Base Excess 2.9 H (-2-2.0) [place] Test Positive A-a Gradient mmHg O2 Delivery Device Mask Oxygen Flow Rate 15.0 FiO2 (21.00-100.00) % Sodium (136-145) mEq/L Potassium (3.5-5.1) mEq/L Chloride (98-107) mEq/L Carbon Dioxide (21-32) mEq/L Anion Gap (5-15) BUN (7-18) mg/dL Creatinine (0.7-1.3) mg/dL Est Cr Clr Drug Dosing mL/min Estimated GFR (MDRD) (>60) mL/min BUN/Creatinine Ratio (14-18) Glucose (74-106) mg/dL POC Glucose 136 H (70-105) mg/dL Hemoglobin A1c (4.50-6.20) % Lactic Acid (0.4-2.0) mmol/L Calcium (8.5-10.1) mg/dL Magnesium (1.8-2.4) mg/dl Total Bilirubin (0.2-1.0) mg/dL AST (15-37) U/L ALT (16-63) U/L Alkaline Phosphatase (46-116) U/L Troponin I (0.00-0.056) ng/mL C-Reactive Protein (<1.0) mg/dL NT-Pro-B Natriuret Pep (0-125) pg/mL Total Protein (6.4-8.2) g/dl Albumin (3.4-5.0) g/dl Globulin gm/dL Albumin/Globulin Ratio (1-2) Triglycerides (<150) mg/dL Cholesterol (<200) mg/dL LDL Cholesterol Direct (<100) mg/dL HDL Cholesterol (40-59) mg/dL Vitamin D 25-Hydroxy (30.0-100.0) ng/ml Free T4 (0.76-1.46) ng/dL TSH 3rd Generation (0.358-3.74) uIU/mL Urine Color (Yellow) Urine Appearance (Clear) Urine pH (5.0-8.0) Ur Specific [place] (1.005-1.030) Urine Protein (Negative) Urine Glucose (UA) (Negative) Urine Ketones (Negative) Urine Occult Blood (Negative) Urine Nitrite (Negative) Urine Bilirubin (Negative) Urine Urobilinogen (0.2-1.0) Ur Leukocyte Esterase (Negative) Urine RBC (0-5) /hpf Urine WBC (0-5) /hpf Ur Epithelial Cells (0-5) /hpf Urine Bacteria (FEW) /hpf Urine Mucus (FEW) /hpf Mycoplasma pneumon IgM (NEGATIVE) Result Diagrams: 09/08/18 05:54 09/08/18 05:54 [place] Results Last 24 hrs: Microbiology 09/07/18 17:55 Influenza Type A Antigen Screen - Final Nasal Aspirate, Unspecified NEGATIVE INFLUENZA A VIRUS AG Influenza Type B Antigen Screen - Final NEGATIVE INFLUENZA B VIRUS AG - Problem List (1) Bilateral pneumonia SNOMED Code(s): 048232449 ICD Code: J18.9 - PNEUMONIA, UNSPECIFIED ORGANISM Status: Acute Current Visit: Yes Qualifiers: Pneumonia type: due to unspecified organism Lung location: lower lobe of lung Qualified Code(s): J18.1 - Lobar pneumonia, unspecified organism (2) Febrile illness SNOMED Code(s): 160928518 ICD Code: R50.9 - FEVER, UNSPECIFIED Status: Acute Current Visit: Yes (3) Hypoxia SNOMED Code(s): 555255737 ICD Code: R09.02 - HYPOXEMIA Status: Acute Current Visit: Yes (4) Hematuria SNOMED Code(s): 07208868 ICD Code: R31.9 - HEMATURIA, UNSPECIFIED Status: Acute Current Visit: No (5) Diabetes mellitus SNOMED Code(s): 08631368 ICD Code: E11.9 - TYPE 2 DIABETES MELLITUS WITHOUT COMPLICATIONS Status: Acute Priority: High Current Visit: Yes Qualifiers: Diabetes mellitus type: type 2 Diabetes mellitus intermediate insulin use: without oil heaterman use Diabetes mellitus complication status: with unspecified complications Qualified Code(s): E11.8 - Type 2 diabetes mellitus with unspecified complications (6) HTN (hypertension) SNOMED Code(s): 33525575 ICD Code: I10 - ESSENTIAL (PRIMARY) HYPERTENSION Status: Chronic Priority : High Current Visit: Yes Qualifiers: Hypertension type: unspecified Qualified Code(s): I10 - Essential (primary ) hypertension Problem List Initiated/Reviewed/Updated: Yes Orders Last 24hrs: Active Orders 24 hr Category Date Time Status Admission Status [Patient Status] [ADT] Routine ADT 09/08/18 07:29 Active Accu Check [Blood Glucose Check, Bedside] [] Care 09/07/18 22:31 Active QIDACANDBED Antiembolic Devices [] DAILY Care 09/07/18 22:29 Active CPAP Adult [RT BiPAP/CPAP] [] ASDIRECTED Care 09/08/18 08:07 Ordered Flutter Valve Therapy [RT Chest Physiotherapy] [] Care 09/07/18 22:38 Active ASDIRECTED Height and Weight [] 04 Care 09/07/18 22:27 Active Incentive Spirometry [RT Incentive Spirometry] [] Care 09/07/18 22:37 Active Q2HWA Intake and Output [RC] 04,16 Care 09/07/18 22:27 Active Oxygen Therapy [RC] PRN Care 09/07/18 22:27 Active RT Aerosol Therapy [RC] ASDIRECTED Care 09/07/18 22:29 Active RT Aerosol Therapy [RC] ASDIRECTED Care 09/08/18 08:05 Active Up With Assistance [RC] ASDIRECTED Care 09/07/18 22:27 Active Up ad Beba [RC] ASDIRECTED Care 09/07/18 22:27 Active VTE/DVT Education [RC] DAILY Care 09/07/18 22:27 Active Vital Signs [RC] Q4HR Care 09/07/18 22:27 Active Consult to Case Management/Methods Time Analyst [CONS] Cons 09/07/18 22:27 Active Routine Consult to Insole Bottom Filler [CONS] Routine Cons 09/07/18 22:27 Active Consult to Spiritual Care [CONS] Routine Cons 09/07/18 22:27 Active OT Evaluation and Treatment [CONS] Routine Cons 09/07/18 22:27 Active PT Evaluation and Treatment [CONS] Routine Cons 09/07/18 22:27 Active Respiratory Care Assess and Treatment [CONS] Routine Cons 09/07/18 22:27 Active Consistent Carbohydrate Diet [DIET] Diet 09/08/18 Breakfast Active Heart Healthy Diet [DIET] Diet 09/08/18 Breakfast Active Chest 1V Frontal [CR] Stat Exams 09/07/18 18:07 Taken Chest wo Cont [CT] Routine Exams 09/08/18 07:00 Ordered Echo Comp wo Cont [US] Routine Exams 09/08/18 07:00 Stop Req BASIC METABOLIC PANEL,BMP [CHEM] AM Lab 09/09/18 05:11 Ordered BASIC METABOLIC PANEL,BMP [CHEM] AM Lab 09/10/18 05:11 Ordered BASIC METABOLIC PANEL,BMP [CHEM] AM Lab 09/11/18 05:11 Ordered C-REACTIVE PROTEIN [CHEM] AM Lab 09/09/18 05:11 Ordered C-REACTIVE PROTEIN [CHEM] AM Lab 09/10/18 05:11 Ordered C-REACTIVE PROTEIN [CHEM] AM Lab 09/11/18 05:11 Ordered CBC WITH AUTO DIFF [HEME] AM Lab 09/09/18 05:11 Ordered CBC WITH AUTO DIFF [HEME] AM Lab 09/10/18 05:11 Ordered CBC WITH AUTO DIFF [HEME] AM Lab 09/11/18 05:11 Ordered CULTURE BLOOD [BC] Stat Lab 09/07/18 18:30 Received CULTURE BLOOD [BC] Stat Lab 09/07/18 18:45 Received CULTURE SPUTUM + SMEAR [RM] Stat Lab 09/07/18 22:27 Ordered MAGNESIUM [CHEM] AM Lab 09/09/18 05:11 Ordered MAGNESIUM [CHEM] AM Lab 09/10/18 05:11 Ordered MAGNESIUM [CHEM] AM Lab 09/11/18 05:11 Ordered PROCALCITONIN [REF] Stat Lab 09/07/18 22:43 Received RESPIRATORY PANEL Stat Lab 09/07/18 23:30 Received STREP PNEUMONIAE ANTIGEN [MREF] Stat Lab 09/08/18 05:15 Received Acetaminophen [Tylenol] Med 09/07/18 23:43 Active 650 mg PO Q4H PRN Albuterol/Ipratropium [DuoNeb 3.0-0.5 MG/3 ML] Med 09/07/18 22:27 Active 3 ml NEB Q4H PRN Albuterol/Ipratropium [DuoNeb 3.0-0.5 MG/3 ML] Med 09/08/18 10:00 Ordered 3 ml NEB Q4HRRT Bisacodyl [Dulcolax] Med 09/07/18 22:27 Active 5 mg PO DAILY PRN Cholecalciferol (Vitamin D3) [Vitamin D3] Med 09/08/18 09:00 Active 1,000 units PO DAILY Dextromethorphan/guaiFENesin [Robitussin DM] Med 09/08/18 07:00 Active 10 ml PO TID@0700,1400,2100 Docusate Sodium [Colace] Med 09/07/18 22:27 Active 100 mg PO BID PRN Docusate Sodium/Sennosides [Senna Plus] Med 09/07/18 22:27 Active 1 tab PO BID PRN Furosemide [Lasix] Med 09/08/18 09:00 Active 20 mg PO DAILY HYDROmorphone [Dilaudid] Med 09/07/18 22:27 Active 1 mg IVPUSH Q4H PRN Insulin Lispro [HumaLOG] Med 09/08/18 07:00 Active See Protocol SUBCUT QIDACANDBED LORazepam [Ativan] Med 09/07/18 22:25 Active 2 mg IVPUSH Q4H PRN Levofloxacin/Dextrose 5%-Water [Levaquin in D5W 750 MG/ Med 09/08/18 20:00 Active 150 ML] 750 mg Premix Bag 1 bag IV Q24H Lisinopril [Prinivil] Med 09/08/18 09:00 Active 20 mg PO DAILY Metoprolol Tartrate [Lopressor] Med 09/08/18 09:00 Active 25 mg PO BID Metoprolol Tartrate [Lopressor] Med 09/07/18 22:25 Active 5 mg IVPUSH Q4H PRN Ondansetron [Zofran] Med 09/07/18 22:27 Active 4 mg IV Q6H PRN Patient's Own Medication [Ptom] Med 09/08/18 09:00 Active 0 each PO DAILY Pharmacy to Dose - Magnesium R [Pharmacy to Dose - Med 09/07/18 22:30 Active Magnesium Replacement] 1 dose .XX ASDIRECTED PRN Pharmacy to Dose - Potassium R [Pharmacy to Dose - Med 09/07/18 22:30 Active Potassium Replacement] 1 dose .XX ASDIRECTED PRN Piperacillin/Tazobactam [Piperacil-Tazobact] 4.5 gm Med 09/08/18 07:00 Active Sodium Chloride 0.9% [Normal Saline] 100 ml IV Q8H Polyethylene Glycol 3350 [MiraLAX] Med 09/07/18 22:27 Active 17 gm PO DAILY PRN Potassium Chloride [Klor-Con 10] Med 09/08/18 09:00 Active 10 meq PO DAILY Promethazine [Phenergan] 6.25 mg Med 09/07/18 22:27 Active Sodium Chloride 0.9% [Normal Saline] 50 ml IV Q6H Saccharomyces Boulardii [Florastor] Med 09/08/18 09:00 Active 250 mg PO BID hydrALAZINE [Apresoline] Med 09/07/18 22:25 Active 20 mg IVPUSH Q4H PRN metFORMIN [Glucophage] Med 09/08/18 07:00 Active 1,000 mg PO BIDMEALS Blood Culture x2 Reflex Set [OM.PC] Stat Oth 09/07/18 18:09 Ordered Sequential Compression Device [OM.PC] Per Unit Routine Oth 09/07/18 22:27 Ordered Resuscitation Status Routine Resus Stat 09/07/18 22:27 Ordered Medication Orders Acetaminophen (Tylenol) 650 mg PO Q4H PRN PRN Reason: Pain/Fever Last Admin: 09/08/18 06:05 Dose: 650 mg Admin: 09/08/18 00:05 Dose: 650 mg Albuterol/Ipratropium (Duoneb 3.0-0.5 Mg/3 Ml) 3 ml NEB Q4H PRN PRN Reason: Shortness Of Breath/wheezing Last Admin: 09/08/18 05:33 Dose: 3 ml Albuterol/Ipratropium (Duoneb 3.0-0.5 Mg/3 Ml) 3 ml NEB Q4HRRT [facility] Bisacodyl (Dulcolax) 5 mg PO DAILY PRN PRN Reason: Constipation Cholecalciferol (Vitamin D3) 1,000 units PO DAILY [facility] Docusate Sodium (Colace) 100 mg PO BID PRN PRN Reason: Constipation Furosemide (Lasix) 20 mg PO DAILY [facility] Guaifenesin/Phenylephrine HCl (Robitussin Dm) 10 ml PO TID@0700,1400,2100 [facility] Last Admin: 09/08/18 06:04 Dose: 10 ml Hydralazine HCl (Apresoline) 20 mg IVPUSH Q4H PRN PRN Reason: Hypertension Hydromorphone HCl (Dilaudid) 1 mg IVPUSH Q4H PRN PRN Reason: Chest pain/Dyspnea Promethazine HCl 6.25 mg/ (Sodium Chloride) 50.25 mls @ 100 mls/hr IV Q6H PRN PRN Reason: Nausea/Vomiting Levofloxacin/Dextrose 750 mg/ (Premix) 150 mls @ 100 mls/hr IV Q24H [facility] Piperacillin Sod/Tazobactam (Sod 4.5 gm/ Sodium Chloride) 100 mls @ 25 mls/hr IV Q8H [facility] Last Admin: 09/08/18 06:06 Dose: 25 mls/hr Insulin Human Lispro (Humalog) 0 unit SUBCUT QIDACANDBED [facility]; Protocol Last Admin: 09/08/18 06:40 Dose: Not Given Lisinopril (Prinivil) 20 mg PO DAILY [facility] Lorazepam (Ativan) 2 mg IVPUSH Q4H PRN PRN Reason: Seizures Magnesium Sulfate (Pharmacy To Dose - Magnesium Replacement) 1 dose .XX ASDIRECTED PRN PRN Reason: RX TO WATCH MG LEVELS Metformin HCl (Glucophage) 1,000 mg PO BIDMEON LICENSE OF [facility] Last Admin: 09/08/18 06:05 Dose: 1,000 mg Metoprolol Tartrate (Lopressor) 25 mg PO BID [facility] Metoprolol Tartrate (Lopressor) 5 mg IVPUSH Q4H PRN PRN Reason: Tachycardia Ondansetron HCl (Zofran) 4 mg IV Q6H PRN PRN Reason: Nausea/Vomiting Meloxicam 15 Mg 0 each PO DAILY [facility] Polyethylene Glycol (Miralax) 17 gm PO DAILY PRN PRN Reason: Constipation Potassium Chloride (Pharmacy To Dose - Potassium Replacement) 1 dose .XX ASDIRECTED PRN PRN Reason: RX TO WATCH K+ LEVELS Potassium Chloride (Klor-Con 10) 10 meq PO DAILY [facility] Saccharomyces Boulardii (Florastor) 250 mg PO BID [facility] Senna/Docusate Sodium (Senna Plus) 1 tab PO BID PRN PRN Reason: Constipation Assessment/Plan Comment:: I/P: Acute: Bilateral PNA/Sepsis - Reports 5 days of fever, body aches, SOB, wheezing and cough. Brown colored sputum - 104 fever in ED - No Leukocytosis - CRP 19.2 - Lactic acid 0.9 - CXR in ED shows "probable perihilar areas of pneumonia" - No known history of lung disease - O2 as needed - Start BiPAP - 60mg IV solumedrol onetime - ABG in ED shows pH of 7.43, PCO2 of 44.4, PO2 67, HCO3 of 20.9, and O2 saturations of 90.8% on 5L. - Repeat ABG on floor 09/08/18: PH 7.37, PCO2 50.8, PO2 58, HCO3 28.7, O2 saturation 88.3 on 15 L via mask - Levaquin started in ED - continue - Start zosyn and vancomycin - Chest CT 09/08/18: * 1. Patchy areas of increased density throughout both lungs presumably due to multifocal pneumonia. Please correlate this matches patient's clinical symptoms. Differential is otherwise fairly extensive. * 2. Other incidental findings as noted above. (Multiple gallstones noted within gallbladder, mediastinal lymph nodes from old inflammatory process) - IS/Acapella/RT - CPT per RT - Repeat CXR in 24-48 hours - Scheduled and PRN nebs - Robitussin DM for cough - Sputum culture ordered - Influenza and mycoplasma negative - RVP ordered - Strep pneumo ordered - Procalcitonin pending - IV fluids as ordered - Start probiotic Hypomagnesemia - Magnesium 1.7 - Pharmacy to monitor and supplement DM - Reportedly "Pre-Diabetic" - On metformin at home - Obese with BMI of 42.3 - A1C 6.7 - now full diabetic - Lipid panel: Triglycerides 66, total cholesterol 71, LDL 41, HDL 21 - On home ACEI - Insole Bottom Filler consult - clinical informatics educator consult Chronic: HTN Nerve damage to right hand 2/2 surgery Plan: Admit to medical floor with telemetry - upgraded to ICU status Other orders as indicated above PT/OT Routine AM labs CM/SW consult Spiritual care consult Home medications as ordered DVT prophylaxis: SCDs Code status: Full code; PCP: JASON
--- NOTE | 2018-09-08 08:12 | CR ---
Chest: Portable view of the chest was obtained. Comparison: No prior chest x-ray. Heart size is normal. Increased perihilar densities are seen on both sides. These findings are most likely due to perihilar areas of pneumonia. Small nodule is noted within the left mid lung which appears fairly dense and most likely represents a granuloma. Bony structures are grossly intact. Impression: 1. Probable perihilar areas of pneumonia on both sides. 2. Other incidental finding as noted above. Diagnostic code #3
[2018-09-08] MEDS: Saccharomyces Boulardii (Probiotic) 250 MG Cap PO SCH ×2 (08:58→20:19)
[2018-09-08] MEDS: Metoprolol Tartrate 25 MG Tab PO SCH ×2 (08:59→20:19)
[2018-09-08] MEDS: Cholecalciferol (Vitamin D3) 1,000 Unit Tab PO SCH (08:59)
[2018-09-08] MEDS ORDERED: Furosemide 20 MG Tab PO SCH (09:00)
[2018-09-08] MEDS ORDERED: Lisinopril 20 MG Tab PO SCH (09:00)
[2018-09-08] MEDS ORDERED: Sodium Chloride 0.9% 1,000 ML IV SCH (09:00)
[2018-09-08] MEDS ORDERED: Potassium Chloride 10 MEQ Tab.ER PO SCH (09:00)
--- NOTE | 2018-09-08 09:09 | CT ---
Chest CT Technique: Multiple axial sections through the chest were obtained. Intravenous contrast was not utilized. Findings: Incidental azygos lobe is seen. Diffuse parenchymal areas of consolidation are seen throughout both lungs. Several small mediastinal lymph nodes are seen believed to be due to old inflammatory process. Mild coronary artery calcification is seen. Fatty infiltration is noted within the liver. Multiple calcified gallstones are seen within the gallbladder. No pericardial thickening is seen. No axillary adenopathy is seen. Bone window settings show scattered degenerative change within the spine. Impression: 1. Patchy areas of increased density throughout both lungs presumably due to multifocal pneumonia. Please correlate if this matches patients clinical symptoms. Differential is otherwise fairly extensive. 2. Other incidental findings as noted above. Diagnostic code #3
[2018-09-08] MEDS ORDERED: Magnesium Oxide 400 MG Tab PO ONE (09:15)
[2018-09-08] MEDS: Albuterol/Ipratropium 3.0-0.5 MG/3 ML Neb Soln NEB SCH ×4 (09:24→21:08)
[2018-09-08] MEDS ORDERED: Vancomycin 500 MG SDV IV SCH (12:15)
[2018-09-08] MEDS ORDERED: guaiFENesin/Dextromethorphan 100-10 MG/5 ML Soln 5 ML Cup PO PRN (14:00)
[2018-09-08] MEDS: Vancomycin 2 GM in Sodium Chloride 0.9% 500 ML IV SCH (14:11)
[2018-09-08] MEDS ORDERED: Levofloxacin/Dextrose 5%-Water 750 MG in Premix Bag 1 BAG IV SCH (20:00)
[2018-09-08] MEDS: HYDROmorphone 1 MG/ML Syringe IVPUSH PRN (22:47)
[2018-09-09] MEDS: Albuterol/Ipratropium 3.0-0.5 MG/3 ML Neb Soln NEB SCH ×4 (01:04→13:23)
[2018-09-09] MEDS: Acetaminophen 325 MG Tab PO PRN ×2 (01:08→16:15)
[2018-09-09] MEDS: Vancomycin 2 GM in Sodium Chloride 0.9% 500 ML IV SCH ×2 (02:21→13:19)
[2018-09-09] MEDS: Albuterol/Ipratropium 3.0-0.5 MG/3 ML Neb Soln NEB PRN (04:28)
[2018-09-09] MEDS ORDERED: methylPREDNISolone Sodium Succinate 40 MG/1 ML SDV IVPUSH SCH ×2 (06:00→18:30)
[2018-09-09] MEDS: Piperacillin/Tazobactam 4.5 GM in Sodium Chloride 0.9% 100 ML IV SCH ×2 (06:03→15:41)
[2018-09-09] MEDS ORDERED: LORazepam 2 MG/ML SDV IVPUSH PRN (07:17)
--- NOTE | 2018-09-09 07:18 | PCM.PN ---
- General Info Date of Service: 09/09/18 Admission Dx/Problem (Free Text): Admission Diagnosis/Problem Admission Diagnosis/Problem Pneumonia Subjective Update: In to see Riki. He had a rough night last night and was frequently refusing his BiPAP. Respiratory therapy has been trying multiple things to make patient comfortable utilizing many different oxygen delivery devices. Patient has been complaining of very dry throat and RT will begin nebulizing saline into the tubing. Patient was educated on importance of wearing mask. This was passed along to nursing as well as overnight patient tends to deteriorate and then improve throughout the day. Repeat chest x-ray today shows increased density in the lungs from last chest x-ray however stable from most recent CT scan. Patient is requesting change from Robitussin so we will switch to Tessalon Perles and oral guaifenesin. We'll schedule this. Instructed both nursing and RT to be very aggressive with pulmonary exercises along with CPT. Repeat ABG from this morning was worse than last night. Patient has reportedly been drinking significant amounts of milk which will not help with his secretions. Nursing has discussed this with patient he will try to cut back. Lactic acid returned at 1.0. Magnesium is 1.7 and will be supplemented. He has been refusing his SCDs. Platelets are low so medical DVT prophylaxis is not indicated. VT score is 3. We will order LUIS gee. Functional Status: Reports: Pain Controlled, Tolerating Diet, Ambulating, Urinating, Incentive Spirometry, Other (acapella). Denies: New Symptoms - Review of Systems General: Reports: Weakness, Fatigue. Denies: Fever, Malaise, Chills HEENT: Reports: Sore Throat (dry). Denies: Headaches Pulmonary: Reports: Shortness of Breath, Pleuritic Chest Pain, Cough, Sputum, Wheezing Cardiovascular: Reports: Dyspnea on Exertion, Edema (chronic ). Denies: Chest Pain, Palpitations, Lightheadedness Gastrointestinal: Reports: Decreased Appetite. Denies: Abdominal Pain, Constipation, Diarrhea, Nausea, Vomiting Genitourinary: Reports: No Symptoms. Denies: Pain Musculoskeletal: Reports: No Symptoms Skin: Reports: No Symptoms. Denies: Cyanosis Neurological: Reports: No Symptoms. Denies: Confusion, Difficulty Walking, Gait Disturbance Psychiatric: Reports: No Symptoms - Patient Data Vitals - Most Recent: Last Vital Signs Temp 98.0 F 09/09/18 04:00 Pulse 92 09/08/18 20:19 Resp 24 H 09/09/18 04:00 BP 113/68 09/09/18 04:00 Pulse Ox 93 L 09/09/18 05:56 Weight - Most Recent: 317 lb 11.2 oz I&O - Last 24 Hours: Intake & Output 09/08/18 09/09/18 09/09/18 22:59 06:59 14:59 Intake Total 1180 1548 Output Total 450 850 Balance 733 878 Lab Results Last 24 Hours: Laboratory Results - last 24 hr 09/07/18 09/07/18 09/08/18 Range/Units 22:43 23:30 05:54 WBC (4.23-9.07) K/mm3 RBC (4.63-6.08) M/mm3 Hgb (13.7-17.5) gm/L Hct (40.1-51.0) % MCV (79.0-92.2) fl MCH (25.7-32.2) pg MCHC (32.2-35.5) g/dl RDW Std Deviation (35.1-43.9) fL Plt Count (163-337) K/mm3 MPV (9.4-12.3) fl Neut % (Auto) (34.0-67.9) % Lymph % (Auto) (21.8-53.1) % Shannon % (Auto) (5.3-12.2) % Eos % (Auto) (0.8-7.0) Baso % (Auto) (0.1-1.2) % Neut # (Auto) (1.78-5.38) K/mm3 Lymph # (Auto) (1.32-3.57) K/mm3 Shannon # (Auto) (0.30-0.82) K/mm3 Eos # (Auto) (0.04-0.54) K/mm3 Baso # (Auto) (0.01-0.08) K/mm3 Puncture Site ABG pH (7.35-7.45) ABG pCO2 (35.0-45.0) mmHg ABG pO2 (80.0-100.0) mmHg ABG HCO3 (22.0-26.0) meq/L ABG O2 Saturation (96.0-97.0) % ABG Base Excess (-2-2.0) Roosevelt Test A-a Gradient mmHg O2 Delivery Device Oxygen Flow Rate Sodium (136-145) mEq/L Potassium (3.5-5.1) mEq/L Chloride (98-107) mEq/L Carbon Dioxide (21-32) mEq/L Anion Gap (5-15) BUN (7-18) mg/dL Creatinine (0.7-1.3) mg/dL Est Cr Clr Drug Dosing mL/min Estimated GFR (MDRD) (>60) mL/min BUN/Creatinine Ratio (14-18) Glucose (74-106) mg/dL POC Glucose (70-105) mg/dL Hemoglobin A1c (4.50-6.20) % Calcium (8.5-10.1) mg/dL Magnesium (1.8-2.4) mg/dl C-Reactive Protein (<1.0) mg/dL NT-Pro-B Natriuret Pep 25 (0-125) pg/mL Triglycerides (<150) mg/dL Cholesterol (<200) mg/dL LDL Cholesterol Direct (<100) mg/dL HDL Cholesterol (40-59) mg/dL Vitamin D 25-Hydroxy (30.0-100.0) ng/ml Procalcitonin 2.62 H (<0.10) ng/mL Free T4 (0.76-1.46) ng/dL TSH 3rd Generation (0.358-3.74) uIU/mL Adenovirus (PCR) Not detected (Not Detected) B. pertussis DNA (PCR) Not detected (Not Detected) B.parapertussis DNA PCR Not detected (Not Detected) C. pneumoniae DNA (PCR) Not detected (Not Detected) Coronavirus (PCR) Not detected (Not Detected) Human Metapneumovir PCR Not detected (Not Detected) Influ A (H1N1/09) PCR Detected H (Not Detected) Influenza B (RT-PCR) Not detected (Not Detected) M. pneumoniae (PCR) Not detected (Not Detected) Parainfluen 1,2,3,4 PCR Not detected (Not Detected) RSV (PCR) Not detected (Not Detected) Entero/Rhino (PCR) Not detected (Not Detected) 09/08/18 09/08/18 09/08/18 Range/Units 05:54 05:54 07:32 WBC (4.23-9.07) K/mm3 RBC (4.63-6.08) M/mm3 Hgb (13.7-17.5) gm/L Hct (40.1-51.0) % MCV (79.0-92.2) fl MCH (25.7-32.2) pg MCHC (32.2-35.5) g/dl RDW Std Deviation (35.1-43.9) fL Plt Count (163-337) K/mm3 MPV (9.4-12.3) fl Neut % (Auto) (34.0-67.9) % Lymph % (Auto) (21.8-53.1) % Shannon % (Auto) (5.3-12.2) % Eos % (Auto) (0.8-7.0) Baso % (Auto) (0.1-1.2) % Neut # (Auto) (1.78-5.38) K/mm3 Lymph # (Auto) (1.32-3.57) K/mm3 Shannon # (Auto) (0.30-0.82) K/mm3 Eos # (Auto) (0.04-0.54) K/mm3 Baso # (Auto) (0.01-0.08) K/mm3 Puncture Site Lt radial ABG pH 7.37 (7.35-7.45) ABG pCO2 50.8 H (35.0-45.0) mmHg ABG pO2 58.0 L (80.0-100.0) mmHg ABG HCO3 28.7 H (22.0-26.0) meq/L ABG O2 Saturation 88.3 L (96.0-97.0) % ABG Base Excess 2.9 H (-2-2.0) Roosevelt Test Positive A-a Gradient mmHg O2 Delivery Device Mask Oxygen Flow Rate 15.0 Sodium 139 (136-145) mEq/L Potassium 4.2 (3.5-5.1) mEq/L Chloride 102 (98-107) mEq/L Carbon Dioxide 32 (21-32) mEq/L Anion Gap 9.2 (5-15) BUN 25 H (7-18) mg/dL Creatinine 1.4 H (0.7-1.3) mg/dL Est Cr Clr Drug Dosing 65.44 mL/min Estimated GFR (MDRD) 53 (>60) mL/min BUN/Creatinine Ratio 17.9 (14-18) Glucose 124 H (74-106) mg/dL POC Glucose (70-105) mg/dL Hemoglobin A1c 6.70 H (4.50-6.20) % Calcium 8.4 L (8.5-10.1) mg/dL Magnesium 1.7 L (1.8-2.4) mg/dl C-Reactive Protein 16.3 H* (<1.0) mg/dL NT-Pro-B Natriuret Pep (0-125) pg/mL Triglycerides 66 (<150) mg/dL Cholesterol 71 (<200) mg/dL LDL Cholesterol Direct 41 (<100) mg/dL HDL Cholesterol 21.0 L (40-59) mg/dL Vitamin D 25-Hydroxy 37.8 (30.0-100.0) ng/ml Procalcitonin (<0.10) ng/mL Free T4 1.03 (0.76-1.46) ng/dL TSH 3rd Generation 1.123 (0.358-3.74) uIU/mL Adenovirus (PCR) (Not Detected) B. pertussis DNA (PCR) (Not Detected) B.parapertussis DNA PCR (Not Detected) C. pneumoniae DNA (PCR) (Not Detected) Coronavirus (PCR) (Not Detected) Human Metapneumovir PCR (Not Detected) Influ A (H1N1/09) PCR (Not Detected) Influenza B (RT-PCR) (Not Detected) M. pneumoniae (PCR) (Not Detected) Parainfluen 1,2,3,4 PCR (Not Detected) RSV (PCR) (Not Detected) Entero/Rhino (PCR) (Not Detected) 09/08/18 09/08/18 09/08/18 Range/Units 11:17 17:17 20:24 WBC (4.23-9.07) K/mm3 RBC (4.63-6.08) M/mm3 Hgb (13.7-17.5) gm/L Hct (40.1-51.0) % MCV (79.0-92.2) fl MCH (25.7-32.2) pg MCHC (32.2-35.5) g/dl RDW Std Deviation (35.1-43.9) fL Plt Count (163-337) K/mm3 MPV (9.4-12.3) fl Neut % (Auto) (34.0-67.9) % Lymph % (Auto) (21.8-53.1) % Shannon % (Auto) (5.3-12.2) % Eos % (Auto) (0.8-7.0) Baso % (Auto) (0.1-1.2) % Neut # (Auto) (1.78-5.38) K/mm3 Lymph # (Auto) (1.32-3.57) K/mm3 Shannon # (Auto) (0.30-0.82) K/mm3 Eos # (Auto) (0.04-0.54) K/mm3 Baso # (Auto) (0.01-0.08) K/mm3 Puncture Site ABG pH (7.35-7.45) ABG pCO2 (35.0-45.0) mmHg ABG pO2 (80.0-100.0) mmHg ABG HCO3 (22.0-26.0) meq/L ABG O2 Saturation (96.0-97.0) % ABG Base Excess (-2-2.0) Roosevelt Test A-a Gradient mmHg O2 Delivery Device Oxygen Flow Rate Sodium (136-145) mEq/L Potassium (3.5-5.1) mEq/L Chloride (98-107) mEq/L Carbon Dioxide (21-32) mEq/L Anion Gap (5-15) BUN (7-18) mg/dL Creatinine (0.7-1.3) mg/dL Est Cr Clr Drug Dosing mL/min Estimated GFR (MDRD) (>60) mL/min BUN/Creatinine Ratio (14-18) Glucose (74-106) mg/dL POC Glucose 167 H 237 H 243 H (70-105) mg/dL Hemoglobin A1c (4.50-6.20) % Calcium (8.5-10.1) mg/dL Magnesium (1.8-2.4) mg/dl C-Reactive Protein (<1.0) mg/dL NT-Pro-B Natriuret Pep (0-125) pg/mL Triglycerides (<150) mg/dL Cholesterol (<200) mg/dL LDL Cholesterol Direct (<100) mg/dL HDL Cholesterol (40-59) mg/dL Vitamin D 25-Hydroxy (30.0-100.0) ng/ml Procalcitonin (<0.10) ng/mL Free T4 (0.76-1.46) ng/dL TSH 3rd Generation (0.358-3.74) uIU/mL Adenovirus (PCR) (Not Detected) B. pertussis DNA (PCR) (Not Detected) B.parapertussis DNA PCR (Not Detected) C. pneumoniae DNA (PCR) (Not Detected) Coronavirus (PCR) (Not Detected) Human Metapneumovir PCR (Not Detected) Influ A (H1N1/09) PCR (Not Detected) Influenza B (RT-PCR) (Not Detected) M. pneumoniae (PCR) (Not Detected) Parainfluen 1,2,3,4 PCR (Not Detected) RSV (PCR) (Not Detected) Entero/Rhino (PCR) (Not Detected) 09/09/18 09/09/18 09/09/18 Range/Units 04:51 04:51 05:35 WBC 5.36 (4.23-9.07) K/mm3 RBC 4.75 (4.63-6.08) M/mm3 Hgb 14.3 (13.7-17.5) gm/L Hct 44.0 (40.1-51.0) % MCV 92.6 H (79.0-92.2) fl MCH 30.1 (25.7-32.2) pg MCHC 32.5 (32.2-35.5) g/dl RDW Std Deviation 47.9 H (35.1-43.9) fL Plt Count 121 L (163-337) K/mm3 MPV 9.5 (9.4-12.3) fl Neut % (Auto) 83.8 H (34.0-67.9) % Lymph % (Auto) 12.5 L (21.8-53.1) % Shannon % (Auto) 3.5 L (5.3-12.2) % Eos % (Auto) 0 L (0.8-7.0) Baso % (Auto) 0.0 L (0.1-1.2) % Neut # (Auto) 4.49 (1.78-5.38) K/mm3 Lymph # (Auto) 0.67 L (1.32-3.57) K/mm3 Shannon # (Auto) 0.19 L (0.30-0.82) K/mm3 Eos # (Auto) 0.00 L (0.04-0.54) K/mm3 Baso # (Auto) 0.00 L (0.01-0.08) K/mm3 Puncture Site Rt radial ABG pH 7.39 (7.35-7.45) ABG pCO2 48.6 H (35.0-45.0) mmHg ABG pO2 46.0 L (80.0-100.0) mmHg ABG HCO3 28.6 H (22.0-26.0) meq/L ABG O2 Saturation 81.5 L (96.0-97.0) % ABG Base Excess 3.2 H (-2-2.0) Roosevelt Test Positive A-a Gradient 533 mmHg O2 Delivery Device Bipap Oxygen Flow Rate 15.0 Sodium 135 L (136-145) mEq/L Potassium 5.0 (3.5-5.1) mEq/L Chloride 103 (98-107) mEq/L Carbon Dioxide 28 (21-32) mEq/L Anion Gap 9.0 (5-15) BUN 30 H (7-18) mg/dL Creatinine 1.2 (0.7-1.3) mg/dL Est Cr Clr Drug Dosing 76.34 mL/min Estimated GFR (MDRD) > 60 (>60) mL/min BUN/Creatinine Ratio 25.0 H (14-18) Glucose 149 H (74-106) mg/dL POC Glucose (70-105) mg/dL Hemoglobin A1c (4.50-6.20) % Calcium 8.7 (8.5-10.1) mg/dL Magnesium 1.7 L (1.8-2.4) mg/dl C-Reactive Protein 17.7 H* (<1.0) mg/dL NT-Pro-B Natriuret Pep (0-125) pg/mL Triglycerides (<150) mg/dL Cholesterol (<200) mg/dL LDL Cholesterol Direct (<100) mg/dL HDL Cholesterol (40-59) mg/dL Vitamin D 25-Hydroxy (30.0-100.0) ng/ml Procalcitonin (<0.10) ng/mL Free T4 (0.76-1.46) ng/dL TSH 3rd Generation (0.358-3.74) uIU/mL Adenovirus (PCR) (Not Detected) B. pertussis DNA (PCR) (Not Detected) B.parapertussis DNA PCR (Not Detected) C. pneumoniae DNA (PCR) (Not Detected) Coronavirus (PCR) (Not Detected) Human Metapneumovir PCR (Not Detected) Influ A (H1N1/09) PCR (Not Detected) Influenza B (RT-PCR) (Not Detected) M. pneumoniae (PCR) (Not Detected) Parainfluen 1,2,3,4 PCR (Not Detected) RSV (PCR) (Not Detected) Entero/Rhino (PCR) (Not Detected) 09/09/18 Range/Units 06:09 WBC (4.23-9.07) K/mm3 RBC (4.63-6.08) M/mm3 Hgb (13.7-17.5) gm/L Hct (40.1-51.0) % MCV (79.0-92.2) fl MCH (25.7-32.2) pg MCHC (32.2-35.5) g/dl RDW Std Deviation (35.1-43.9) fL Plt Count (163-337) K/mm3 MPV (9.4-12.3) fl Neut % (Auto) (34.0-67.9) % Lymph % (Auto) (21.8-53.1) % Shannon % (Auto) (5.3-12.2) % Eos % (Auto) (0.8-7.0) Baso % (Auto) (0.1-1.2) % Neut # (Auto) (1.78-5.38) K/mm3 Lymph # (Auto) (1.32-3.57) K/mm3 Shannon # (Auto) (0.30-0.82) K/mm3 Eos # (Auto) (0.04-0.54) K/mm3 Baso # (Auto) (0.01-0.08) K/mm3 Puncture Site ABG pH (7.35-7.45) ABG pCO2 (35.0-45.0) mmHg ABG pO2 (80.0-100.0) mmHg ABG HCO3 (22.0-26.0) meq/L ABG O2 Saturation (96.0-97.0) % ABG Base Excess (-2-2.0) Roosevelt Test A-a Gradient mmHg O2 Delivery Device Oxygen Flow Rate Sodium (136-145) mEq/L Potassium (3.5-5.1) mEq/L Chloride (98-107) mEq/L Carbon Dioxide (21-32) mEq/L Anion Gap (5-15) BUN (7-18) mg/dL Creatinine (0.7-1.3) mg/dL Est Cr Clr Drug Dosing mL/min Estimated GFR (MDRD) (>60) mL/min BUN/Creatinine Ratio (14-18) Glucose (74-106) mg/dL POC Glucose 167 H (70-105) mg/dL Hemoglobin A1c (4.50-6.20) % Calcium (8.5-10.1) mg/dL Magnesium (1.8-2.4) mg/dl C-Reactive Protein (<1.0) mg/dL NT-Pro-B Natriuret Pep (0-125) pg/mL Triglycerides (<150) mg/dL Cholesterol (<200) mg/dL LDL Cholesterol Direct (<100) mg/dL HDL Cholesterol (40-59) mg/dL Vitamin D 25-Hydroxy (30.0-100.0) ng/ml Procalcitonin (<0.10) ng/mL Free T4 (0.76-1.46) ng/dL TSH 3rd Generation (0.358-3.74) uIU/mL Adenovirus (PCR) (Not Detected) B. pertussis DNA (PCR) (Not Detected) B.parapertussis DNA PCR (Not Detected) C. pneumoniae DNA (PCR) (Not Detected) Coronavirus (PCR) (Not Detected) Human Metapneumovir PCR (Not Detected) Influ A (H1N1/09) PCR (Not Detected) Influenza B (RT-PCR) (Not Detected) M. pneumoniae (PCR) (Not Detected) Parainfluen 1,2,3,4 PCR (Not Detected) RSV (PCR) (Not Detected) Entero/Rhino (PCR) (Not Detected) [place] Results Last 24 Hours: Microbiology 09/08/18 18:50 Gram Stain - Preliminary Sputum - Expectorated 09/07/18 18:30 Aerobic Blood Culture - Preliminary Blood - Venous NO GROWTH AFTER 1 DAY Anaerobic Blood Culture - Preliminary NO GROWTH AFTER 1 DAY 09/07/18 18:45 Aerobic Blood Culture - Preliminary Blood - Venous - Lab Draw NO GROWTH AFTER 1 DAY Anaerobic Blood Culture - Preliminary NO GROWTH AFTER 1 DAY 09/08/18 13:40 Gram Stain - Final Sputum - Expectorated Sputum Culture - Final Med Orders - Current: Current Medications Acetaminophen (Tylenol) 650 mg PO Q4H PRN PRN Reason: Pain/Fever Last Admin: 09/09/18 01:08 Dose: 650 mg Albuterol/Ipratropium (Duoneb 3.0-0.5 Mg/3 Ml) 3 ml NEB Q4H PRN PRN Reason: Shortness Of Breath/wheezing Last Admin: 09/09/18 04:28 Dose: 3 ml Albuterol/Ipratropium (Duoneb 3.0-0.5 Mg/3 Ml) 3 ml NEB Q4HRRT [facility] Last Admin: 09/09/18 05:09 Dose: 3 ml Bisacodyl (Dulcolax) 5 mg PO DAILY PRN PRN Reason: Constipation Cholecalciferol (Vitamin D3) 1,000 units PO DAILY [facility] Last Admin: 09/08/18 08:59 Dose: 1,000 units Docusate Sodium (Colace) 100 mg PO BID PRN PRN Reason: Constipation Furosemide (Lasix) 20 mg PO DAILY [facility] Last Admin: 09/08/18 08:58 Dose: 20 mg Guaifenesin/Phenylephrine HCl (Robitussin Dm) 10 ml PO TID@0700,1400,2100 [facility] Last Admin: 09/08/18 20:19 Dose: 10 ml Hydralazine HCl (Apresoline) 20 mg IVPUSH Q4H PRN PRN Reason: Hypertension Hydromorphone HCl (Dilaudid) 1 mg IVPUSH Q4H PRN PRN Reason: Chest pain/Dyspnea Last Admin: 09/08/18 22:47 Dose: 1 mg Promethazine HCl 6.25 mg/ (Sodium Chloride) 50.25 mls @ 100 mls/hr IV Q6H PRN PRN Reason: Nausea/Vomiting Levofloxacin/Dextrose 750 mg/ (Premix) 150 mls @ 100 mls/hr IV Q24H [facility] Last Admin: 09/08/18 20:02 Dose: 100 mls/hr Piperacillin Sod/Tazobactam (Sod 4.5 gm/ Sodium Chloride) 100 mls @ 25 mls/hr IV Q8H [facility] Last Admin: 09/09/18 06:03 Dose: 25 mls/hr Sodium Chloride (Normal Saline) 1,000 mls @ 125 mls/hr IV ASDIRECTED [facility] Vancomycin HCl 2 gm/ Sodium (Chloride) 500 mls @ 250 mls/hr IV Q12H [facility] Last Admin: 09/09/18 02:21 Dose: 250 mls/hr Insulin Human Lispro (Humalog) 0 unit SUBCUT QIDACANDBED [facility]; Protocol Last Admin: 09/08/18 21:06 Dose: 2 unit Lisinopril (Prinivil) 20 mg PO DAILY [facility] Last Admin: 09/08/18 08:59 Dose: 20 mg Lorazepam (Ativan) 2 mg IVPUSH Q4H PRN PRN Reason: Seizures Magnesium Sulfate (Pharmacy To Dose - Magnesium Replacement) 1 dose .XX ASDIRECTED PRN PRN Reason: RX TO WATCH MG LEVELS Metformin HCl (Glucophage) 1,000 mg PO BIDMEALS [facility] Last Admin: 09/08/18 16:09 Dose: 1,000 mg Methylprednisolone Sodium Succinate (Solu-Medrol) 60 mg IVPUSH BID [facility] Last Admin: 09/09/18 05:36 Dose: 60 mg Metoprolol Tartrate (Lopressor) 25 mg PO BID [facility] Last Admin: 09/08/18 20:19 Dose: 25 mg Metoprolol Tartrate (Lopressor) 5 mg IVPUSH Q4H PRN PRN Reason: Tachycardia Ondansetron HCl (Zofran) 4 mg IV Q6H PRN PRN Reason: Nausea/Vomiting Last Admin: 09/09/18 06:46 Dose: 4 mg Oseltamivir Phosphate (Tamiflu) 75 mg PO BID [facility] Meloxicam 15 Mg 0 each PO DAILY [facility] Last Admin: 09/08/18 09:16 Dose: Not Given Polyethylene Glycol (Miralax) 17 gm PO DAILY PRN PRN Reason: Constipation Potassium Chloride (Pharmacy To Dose - Potassium Replacement) 1 dose .XX ASDIRECTED PRN PRN Reason: RX TO WATCH K+ LEVELS Potassium Chloride (Klor-Con 10) 10 meq PO DAILY [facility] Last Admin: 09/08/18 08:58 Dose: 10 meq Saccharomyces Boulardii (Florastor) 250 mg PO BID [facility] Last Admin: 09/08/18 20:19 Dose: 250 mg Senna/Docusate Sodium (Senna Plus) 1 tab PO BID PRN PRN Reason: Constipation Vancomycin HCl (Pharmacy To Dose - Vancomycin) 0 dose .XX ASDIRECTED [facility] Discontinued Medications Acetaminophen (Tylenol) 975 mg PO NOW ONE Stop: 09/07/18 20:02 Last Admin: 09/07/18 20:10 Dose: 975 mg Guaifenesin/Phenylephrine HCl (Robitussin Dm) 10 ml PO TID@0700,1400,2100 PRN PRN Reason: Cough Hydromorphone HCl (Dilaudid) 1 mg IVPUSH ONETIME ONE Stop: 09/07/18 18:08 Last Admin: 09/07/18 19:02 Dose: 1 mg Dextrose/Sodium Chloride (Dextrose 5%-Normal Saline) 1,000 mls @ [facility] Admin: 09/07/18 19:08 Dose: 999 mls/hr Levofloxacin/Dextrose 750 mg/ (Premix) 150 mls @ 100 mls/hr IV ONETIME ONE Stop: 09/07/18 20:37 Last Admin: 09/07/18 20:08 Dose: 100 mls/hr Dextrose/Sodium Chloride (Dextrose 5%-Normal Saline) 1,000 mls @ 200 [facility] Last Admin: 09/07/18 21:00 Dose: 200 mls/hr Piperacillin Sod/Tazobactam (Sod 4.5 gm/ Sodium Chloride) 100 mls @ 200 mls/hr IV ONETIME ONE Stop: 09/07/18 23:29 Last Admin: 09/07/18 23:21 Dose: 200 mls/hr Ibuprofen (Motrin) 600 mg PO ONETIME ONE Stop: 09/07/18 18:08 Last Admin: 09/07/18 19:07 Dose: 600 mg Magnesium Oxide (Magnesium Oxide) 400 mg PO ONETIME [facility] Stop: 09/07/18 23:59 Last Admin: 09/08/18 00:06 Dose: 400 mg Magnesium Oxide (Magnesium Oxide) 800 mg PO ONETIME ONE Stop: 09/08/18 09:16 Last Admin: 09/08/18 09:18 Dose: 800 mg Methylprednisolone Sodium Succinate (Solu-Medrol) 60 mg IVPUSH ONETIME ONE Stop: 09/08/18 08:04 Last Admin: 09/08/18 08:58 Dose: 60 mg Metoclopramide HCl (Reglan) 10 mg IVPUSH ONETIME ONE Stop: 09/07/18 18:08 Last Admin: 09/07/18 19:04 Dose: 10 mg Vancomycin HCl (Vancomycin) 2,122.815 mg 15 mg/kg (2122.815 mg) IV Q12H [facility] Last Admin: 09/08/18 14:22 Dose: Not Given - Exam Quality Assessment: No: DVT Prophylaxis (refusing - encourage ambulation ) General: Alert, Oriented, Cooperative, Mild Distress (Tachypneic but comfortable ) HEENT: Pupils Equal, Pupils Reactive, EOMI, Mucous Membr. Moist/[place] Neck: Supple, Trachea Midline Lungs: Decreased Breath Sounds, Rhonchi, Wheezing. No: Normal Respiratory Effort Cardiovascular: Regular Rate, Regular Rhythm GI/Abdominal Exam: Normal Bowel Sounds, Soft, Non-Tender, No Distention, No Abnormal Bruit (Male) Exam: Deferred Back Exam: Normal Inspection, Full Range of Motion Extremities: Normal Inspection, Normal Range of Motion, Non-Tender, Normal Capillary Refill, Pedal Edema (1-2+) Peripheral Pulses: 2+: Radial (L), Radial (R), Dorsalis Pedis (L), Dorsalis Pedis (R) Skin: Warm, Dry, Intact Neurological: No New Focal Deficit Psy/Mental Status: Alert, Normal Affect, Normal Mood - Problem List & Annotations (1) Bilateral pneumonia SNOMED Code(s): 171137063 Code(s): J18.9 - PNEUMONIA, UNSPECIFIED ORGANISM Status: Acute Current Visit: Yes Qualifiers: Pneumonia type: due to unspecified organism Lung location: lower lobe of lung Qualified Code(s): J18.1 - Lobar pneumonia, unspecified organism (2) Febrile illness SNOMED Code(s): 504260907 Code(s): R50.9 - FEVER, UNSPECIFIED Status: Acute Current Visit: Yes (3) Hypoxia SNOMED Code(s): 182534812 Code(s): R09.02 - HYPOXEMIA Status: Acute Current Visit: Yes (4) Hematuria SNOMED Code(s): 07660894 Code(s): R31.9 - HEMATURIA, UNSPECIFIED Status: Acute Current Visit: No (5) Diabetes mellitus SNOMED Code(s): 43221101 Code(s): E11.9 - TYPE 2 DIABETES MELLITUS WITHOUT COMPLICATIONS Status: Acute Priority: High Current Visit: Yes Qualifiers: Diabetes mellitus type: type 2 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 Diabetes mellitus complication status: with unspecified complications Qualified Code(s): E11.8 - Type 2 diabetes mellitus with unspecified complications (6) HTN (hypertension) SNOMED Code(s): 37052635 Code(s): I10 - ESSENTIAL (PRIMARY) HYPERTENSION Status: Chronic Priority : High Current Visit: Yes Qualifiers: Hypertension type: unspecified Qualified Code(s): I10 - Essential (primary ) hypertension - Problem List Review Problem List Initiated/Reviewed/Updated: Yes - My Orders Last 24 Hours: My Active Orders 09/08/18 07:29 Admission Status [Patient Status] [ADT] Routine 09/08/18 08:07 CPAP Adult [RT BiPAP/CPAP] [RC] ASDIRECTED 09/08/18 09:00 Sodium Chloride 0.9% [Normal Saline] 1,000 ml IV ASDIRECTED 09/08/18 09:03 Consult to Diabetic Nurse Specialist [CONS] Routine 09/08/18 10:00 Albuterol/Ipratropium [DuoNeb 3.0-0.5 MG/3 ML] 3 ml NEB Q4HRRT 09/09/18 07:14 Chest 1V Frontal [CR] Routine LACTIC ACID [CHEM] Stat 09/09/18 09:00 Oseltamivir [Tamiflu] 75 mg PO BID 09/10/18 08:00 CXR [Chest 2V] [CR] Routine - Plan Plan:: I/P: Acute: Bilateral PNA/Sepsis - Reports 5 days of fever, body aches, SOB, wheezing and cough. Brown colored sputum - 104 fever in ED - No Leukocytosis - CRP 19.2-->16.3-->17.7 - Lactic acid 0.9-->1.0 - CXR in ED shows "probable perihilar areas of pneumonia" - No known history of lung disease - O2 as needed - Start BiPAP - 60mg IV solumedrol BID - ABG in ED shows pH of 7.43, PCO2 of 44.4, PO2 67, HCO3 of 20.9, and O2 saturations of 90.8% on 5L. - Repeat ABG on floor 09/08/18: PH 7.37, PCO2 50.8, PO2 58, HCO3 28.7, O2 saturation 88.3% on 15 L via mask - Repeat ABG on floor 09/09/18: PH of 7.39, PCO2 40.6, PO2 46.0, HCO3 28.6, O2 saturation 81.5% on 15L BiPAP -Non-compliant through much of night - Levaquin started in ED - continue - Start zosyn and vancomycin - Chest CT 09/08/18: * 1. Patchy areas of increased density throughout both lungs presumably due to multifocal pneumonia. Please correlate this matches patient's clinical symptoms. Differential is otherwise fairly extensive. * 2. Other incidental findings as noted above. (Multiple gallstones noted within gallbladder, mediastinal lymph nodes from old inflammatory process) - IS/Acapella/RT - CPT per RT - Repeat CXR 09/09/18: Patchy increased density within both lungs. Findings felt to be similar to recent chest CT. - Repeat CXR in 24-48 hours - Scheduled and PRN nebs - Robitussin DM for cough - refusing, start Tessalon Perles and Mucinex. - Sputum culture ordered - Influenza and mycoplasma negative - RVP - POSITIVE Influenza A - Strep pneumo ordered - Procalcitonin 2.62 - IV fluids as ordered - Start probiotic - Aggressive pulmonary toilet Influenza A - Start Tamiflu - Supportive care Hypomagnesemia - Magnesium 1.7-->1.7-->1.7 - Pharmacy to monitor and supplement DM - Reportedly "Pre-Diabetic" - On metformin at home - Obese with BMI of 42.3 - A1C 6.7 - now full diabetic - Lipid panel: Triglycerides 66, total cholesterol 71, LDL 41, HDL 21 - On home ACEI - Parts Advisor consult - school vocational educator consult Chronic: HTN Nerve damage to right hand 2/2 surgery Plan: Admit to medical floor with telemetry - upgraded to ICU status Other orders as indicated above PT/OT Routine AM labs Droplet isolation CM/SW consult Spiritual care consult Home medications as ordered DVT prophylaxis: Refusing SCDs, Will try teds, Low platelets = no pharmacological Code status: Full code; PCP: JASON
[2018-09-09] MEDS: Insulin Lispro 100 Units/ML 3 ML Vial SUBCUT SCH ×3 (08:22→20:47)
[2018-09-09] MEDS: guaiFENesin/Dextromethorphan 100-10 MG/5 ML Soln 5 ML Cup PO SCH (08:23)
[2018-09-09] MEDS: Cholecalciferol (Vitamin D3) 1,000 Unit Tab PO SCH (08:24)
[2018-09-09] MEDS: Metoprolol Tartrate 25 MG Tab PO SCH (08:24)
[2018-09-09] MEDS: metFORMIN 500 MG Tab PO SCH ×2 (08:24→16:27)
[2018-09-09] MEDS: Saccharomyces Boulardii (Probiotic) 250 MG Cap PO SCH (08:24)
--- NOTE | 2018-09-09 08:56 | CR ---
Chest: Portable view of the chest was obtained. Comparison: Prior chest CT of 09/08/18 and chest x-ray of 09/07/18. Patchy increased densities throughout both lungs are seen. Findings felt to be fairly similar to recent chest CT but slightly increased from recent chest x-ray. Heart size is slightly generous which is felt to be accentuated from portable technique. Bony structures are grossly intact. Impression: 1. Patchy increased density within both lungs. As mentioned above, findings are felt to be fairly similar to recent chest CT. Diagnostic code #3
[2018-09-09] MEDS ORDERED: Oseltamivir 75 MG Cap PO SCH (09:00)
[2018-09-09] MEDS ORDERED: Magnesium Oxide 400 MG Tab PO SCH (09:00)
[2018-09-09] MEDS: HYDROmorphone 1 MG/ML Syringe IVPUSH PRN (11:38)
[2018-09-09] MEDS ORDERED: Benzonatate 100 MG Cap PO SCH (15:00)
[2018-09-09] MEDS ORDERED: Morphine 2 MG/ML Syringe IVPUSH PRN (16:03)
[2018-09-09] MEDS ORDERED: Bumetanide 1 MG/4 ML MDV IVPUSH ONE (16:04)
[2018-09-09] MEDS ORDERED: Modafinil 200 MG Tab PO ONE (16:09)
[2018-09-09] MEDS ORDERED: Midazolam 1 MG/ML 5 ML SDV IVPUSH ONE (17:40)
[2018-09-09] MEDS ORDERED: Rocuronium 50 MG/5 ML Vial IVPUSH ONE (17:42)
[2018-09-09] MEDS ORDERED: fentaNYL 2,500 MCG in Sodium Chloride 0.9% 200 ML IV SCH (18:00)
--- NOTE | 2018-09-09 18:10 | PCM.SN ---
- Free Text/Narrative Note: Patient not doing well. He continues to desaturates in the low 80s and &0s with activity. He is also starting to decline. Offered him initial to intubate but refused however after we got a hold of her significant other and came him to speak with him he decided to have the tube in. Right away, we then proceeded with RSI. He received sedation/paralytics and then ET tube was put in. Thereafter we attached him to a ventilator with vent setting provided by Dr. Monique, logistics supply officer, [facility]. His chest x-ray showed diffuse infiltrates with pulmonary edema. His significant other was informed about his significant findings of ARDS. He will be transferred to [place] for upper level of care via air.
--- NOTE | 2018-09-09 18:10 | PCM.PRNOTE ---
- Free Text/Narrative Note: Endotracheal Intubation Date: 09/09/2018 Time: 180 Indication: Respiratory Distress, Worsening Hypoxemia and Declining Respiratory Status Attending: Corrie Grant DO A time-out was completed verifying correct patient, procedure, site, positioning , and special equipment if applicable. The patient was placed in a flat position. Sedation was obtained using Versed 5mg, and additionally with Rocuronium 86mg. The patient was not easily ventilated using an ambu bag. We had a lot of resistance even though he was adequately provided with sedation and paralytics. However without prolonging his status quo, we proceeded with immediate intubation. Electronic [place] scope using MAC 4 BLADE was used and inserted into the oropharynx at which time there was a Grade 1 view of the vocal cords. An 8-greek endotracheal tube was inserted and visualized going through the vocal cords. The stylette was removed. Colorimetric change was visualized on the CO2 meter. Breath sounds were heard in both lung dorsey equally. The endotracheal tube was placed initially at 25 cm, measured at the teeth but later adjusted to 26 cm. A chest x-ray was ordered to assess for pneumothorax and verify endotracheal tube placement. His chest x-ray report reads support lines and tubes are unchanged and in satisfactory position. Stable extensive diffuse air space opacities right > left. No pleural effusion. No pneumothorax.
[2018-09-09] MEDS ORDERED: Dextrose 5%-0.9% NaCl with KCl 1,000 ML IV SCH (18:15)
[2018-09-09] MEDS ORDERED: Insulin Lispro 100 Units/ML 3 ML Vial SUBCUT SCH (18:30)
[2018-09-09] MEDS ORDERED: Fluconazole/Normal Saline 200 MG in Premix Bag 1 BAG IV SCH (19:30)
--- NOTE | 2018-09-09 19:30 | PCM.DCSUM1 ---
Discharge Summary - Hospital Course Free Text/Narrative:: This is 53 yo white male who came in for worsening flu like symptoms for the past five days and was diagnosed upon presentation with bilateral pneumonia. He received treatment to include routine pulmonary care, triple intravenous antibiotics, intravenous steroids, decongestant, expectorant as well as pulmonary toilet. However despite aggressive treatment (some he refused to take) , he progressively decline respiratory rapp prompting use to use BIPAP so he can maintain an adequate O2 saturation. Unfortunately, BIPAP did not improve his oxygenation and he started to decline clinically. We offered intubation and he refused it initially but after talking to his /significant other, he then agreed to it. After we was successfully intubated, we made phone calls in [place] and got ahold of Dr. Monique who provided vent setting (after informing him that patient meets criteria of ARDS). He agreed to take him under his services since patient would likely require bronchoscopic procedures. Once patient is stable (to our best of our ability), he was the flown to [place] right away. HPI Initial Comments: Riki Dinh is a 53 yo male who [facility]. Reports he's been feeling sick for about the past 5 days with high fever, body aches, paroxysmal cough. Reports he hasn't eaten in the past 5 days and is extremely weak. On arrival was found to have saturations of 74% and central cyanosis. Is placed on 3 L nasal cannula which was advanced to 5 and he was still unable to get above 90% saturation. He was then placed on nonrebreather mask at 10 L which brought up to 96%. At her pain at the base was right lung with deep breathing and coughing. Reports brownish discharge without any blood when coughing. Reports symptoms began with nausea and vomiting but no diarrhea. He feels weak and lightheaded. In the ED temperature is 100.4 degrees and he meets criteria for sepsis. Blood pressures 150s systolic. Reports been taking Tylenol Celi walks he can for fever and body ache relief. He did not receive a flu shot this year. In the ED temp was 39.7C. Pulse 105. Respirations 26. Blood pressure 150/ 92. Pulse ox 74%. EKG was obtained showing sinus rhythm at 97 bpm. 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 Patient has no history of [place]. There is no ST segment abnormalities. Labs are obtained: WBC is low at 3.73. Hemoglobin 16.4. Hematocrit 50.1. He is normocytic. Platelets are low 144,000. Neutrophils are elevated at 80%. There is 2% band neutrophils noted. Sodium is 136. Potassium 4.1. Chloride 100. Carbon dioxide 28. Anion gap was 12.1. BUN is 21. Creatinine 1.1. EGFR screen and 60. Glucose is 145. Calcium is 8.6. Magnesium 1.7. Bilirubin 0.3. AST 64, ALT 61, alkaline phosphatase 54. Troponin is 0.017. CRP is 19.2. BNP is 37. Protein 7.2. Albumin is 2.6. ABGs obtained in the left radial showing a pH of 7.43. PCO2 of 44.4. PO2 67. Bicarbonate 28.9. O2 saturation of 90.8. Base excess of 4.4. This is obtained on 5 L via nasal cannula. Lactic acid is 0.9. He is given a fluid bolus and started on IV fluids. He is also given Tylenol, Dilaudid, ibuprofen, and Reglan. Chest x- rays obtained and interpreted by Dr. Car as "1. Probable perihilar areas of pneumonia on both sides. 2. Other incidental findings as noted above." Mycoplasma pneumonia is negative. Influenza screen is negative. UA is obtained showing 1+ protein 1+ occult blood and 10-20 RBCs. It is otherwise negative. 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 He is a full code. [facility] Diagnosis: Stroke: No Modified Cathy Scale: No Symptoms at All Modified Cathy Scale Score: 0 - Discharge Data Discharge Date: 09/09/18 Discharge Disposition: DC/Tfer to Acute Hospital 02 Condition: Good - Discharge Diagnosis/Problem(s) (1) ARDS (adult respiratory distress syndrome) SNOMED Code(s): 36942977 ICD Code: J80 - ACUTE RESPIRATORY DISTRESS SYNDROME Status: Acute Current Visit: Yes (2) Influenza SNOMED Code(s): 5707360 ICD Code: J11.1 - FLU DUE TO UNIDENTIFIED INFLUENZA VIRUS W OTH RESP MANIFEST Status: Acute Current Visit: Yes (3) Fungal pneumonia SNOMED Code(s): 104951018 ICD Code: B49 - UNSPECIFIED MYCOSIS; J17 - PNEUMONIA IN DISEASES CLASSIFIED ELSEWHERE Status: Acute Current Visit: Yes (4) Morbid obesity with BMI of 40.0-44.9, adult SNOMED Code(s): 121651738, 99996199516494 ICD Code: E66.01 - MORBID (SEVERE) OBESITY DUE TO EXCESS CALORIES; Z68.41 - BODY MASS INDEX (BMI) 40.0-44.9, ADULT Status: Chronic Current Visit: Yes (5) Diabetes mellitus SNOMED Code(s): 39270606 ICD Code: E11.9 - TYPE 2 DIABETES MELLITUS WITHOUT COMPLICATIONS Status: Chronic Priority: High Current Visit: Yes Qualifiers: Diabetes mellitus type: type 2 Diabetes mellitus fpc insulin use: without termite renewal inspector use Diabetes mellitus complication status: with unspecified complications Qualified Code(s): E11.8 - Type 2 diabetes mellitus with unspecified complications (6) HTN (hypertension) SNOMED Code(s): 99638487 ICD Code: I10 - ESSENTIAL (PRIMARY) HYPERTENSION Status: Chronic Priority : High Current Visit: Yes Qualifiers: Hypertension type: unspecified Qualified Code(s): I10 - Essential (primary ) hypertension - Patient Summary/Data Operative Procedure(s) Performed: RSI Complications: None Consults: Consultations 09/07/18 22:27 Consult to Case Management/Water/Wastewater Engineer [CONS] Routine Consult to Press Catcher [CONS] Routine Consult to Spiritual Care [CONS] Routine OT Evaluation and Treatment [CONS] Routine PT Evaluation and Treatment [CONS] Routine Respiratory Care Assess and Treatment [CONS] Routine 09/08/18 09:03 Consult to Diabetic Nurse Specialist [CONS] Routine Recommended Follow-up Testing/Procedures: Bronchoscopy Planned Operative Procedure(s) after DC: Likely bronchoscopy - Patient Instructions Diet: NPO Driving: Do Not Drive Notify Provider of: Fever, Increased Pain, Swelling and Redness, Drainage, Nausea and/or Vomiting Other/Special Instructions: - Transfer to [facility] in [place] under the services of Dr. Monique, grease maker head. - Discharge Plan *PRESCRIPTION DRUG MONITORING PROGRAM REVIEWED*: Not Applicable *COPY OF PRESCRIPTION DRUG MONITORING REPORT IN PATIENT OCTAVIO: Not Applicable Home Medications: Home Meds Cholecalciferol (Vitamin D3) [Vitamin D3] 2,000 units PO DAILY 07/22/16 [History ] Fosinopril Sodium 40 mg PO DAILY 01/24/17 [History] Meloxicam 15 mg PO DAILY 07/22/16 [History] Metoprolol Tartrate [Lopressor] 25 mg PO BID 07/22/16 [History] Furosemide [Lasix] 20 mg PO DAILY 09/07/18 [History] Potassium Chloride 10 meq PO DAILY 09/07/18 [History] metFORMIN [Glucophage XR] 1,000 mg PO BIDMEALS 09/07/18 [History] Oxygen Therapy Mode: Mechanical Ventilation Referrals: Dorota Vail MD [Physician] - - Discharge Summary/Plan Comment DC Time >30 min.: Yes (1 h4) Discharge Summary/Plan Comment: Transfer to [facility] via [facility]. He will be under the services of Dr. Monique, grease maker head. - General Info Date of Service: 09/09/18 Admission Dx/Problem (Free Text: Admission Diagnosis/Problem Admission Diagnosis/Problem Pneumonia Subjective Update: In to see Riki. He had a rough night last night and was frequently refusing his BiPAP. Respiratory therapy has been trying multiple things to make patient comfortable utilizing many different oxygen delivery devices. Patient has been complaining of very dry throat and RT will begin nebulizing saline into the tubing. Patient was educated on importance of wearing mask. This was passed along to nursing as well as overnight patient tends to deteriorate and then improve throughout the day. Repeat chest x-ray today shows increased density in the lungs from last chest x-ray however stable from most recent CT scan. Patient is requesting change from Robitussin so we will switch to Tessalon Perles and oral guaifenesin. We'll schedule this. Instructed both nursing and RT to be very aggressive with pulmonary exercises along with CPT. Repeat ABG from this morning was worse than last night. Patient has reportedly been drinking significant amounts of milk which will not help with his secretions. Nursing has discussed this with patient he will try to cut back. Lactic acid returned at 1.0. Magnesium is 1.7 and will be supplemented. He has been refusing his SCDs. Platelets are low so medical DVT prophylaxis is not indicated. VT score is 3. We will order LUIS hose. Functional Status: Reports: Pain Controlled, Urinating. Denies: New Symptoms - Review of Systems Systems Review Comment: Unable to obtain ROS. Patient is sedated and intubated on mechanical ventilator. - Patient Data Vitals - Most Recent: Last Vital Signs Temp 37.6 C 09/09/18 16:15 Pulse 85 09/09/18 08:24 Resp 37 H 09/09/18 15:34 BP 121/76 09/09/18 15:34 Pulse Ox 89 L 09/09/18 15:34 Weight - Most Recent: 144.106 kg I&O - Last 24 hours: Intake & Output 09/09/18 09/09/18 09/09/18 06:59 14:59 22:59 Intake Total 1548 240 600 Output Total 850 220 Balance 698 240 380 Lab Results - Last 24 hrs: Laboratory Results - last 24 hr 09/07/18 09/07/18 09/08/18 Range/Units 22:43 23:30 20:24 WBC (4.23-9.07) K/mm3 RBC (4.63-6.08) M/mm3 Hgb (13.7-17.5) gm/L Hct (40.1-51.0) % MCV (79.0-92.2) fl MCH (25.7-32.2) pg MCHC (32.2-35.5) g/dl RDW Std Deviation (35.1-43.9) fL Plt Count (163-337) K/mm3 MPV (9.4-12.3) fl Neut % (Auto) (34.0-67.9) % Lymph % (Auto) (21.8-53.1) % Addison % (Auto) (5.3-12.2) % Eos % (Auto) (0.8-7.0) Baso % (Auto) (0.1-1.2) % Neut # (Auto) (1.78-5.38) K/mm3 Lymph # (Auto) (1.32-3.57) K/mm3 Addison # (Auto) (0.30-0.82) K/mm3 Eos # (Auto) (0.04-0.54) K/mm3 Baso # (Auto) (0.01-0.08) K/mm3 Puncture Site ABG pH (7.35-7.45) ABG pCO2 (35.0-45.0) mmHg ABG pO2 (80.0-100.0) mmHg ABG HCO3 (22.0-26.0) meq/L ABG O2 Saturation (96.0-97.0) % ABG Base Excess (-2-2.0) Roosevelt Test A-a Gradient mmHg O2 Delivery Device Oxygen Flow Rate FiO2 (21.00-100.00) % PEEP cmH20 Pressure Support cmH2O Sodium (136-145) mEq/L Potassium (3.5-5.1) mEq/L Chloride (98-107) mEq/L Carbon Dioxide (21-32) mEq/L Anion Gap (5-15) BUN (7-18) mg/dL Creatinine (0.7-1.3) mg/dL Est Cr Clr Drug Dosing mL/min Estimated GFR (MDRD) (>60) mL/min BUN/Creatinine Ratio (14-18) Glucose (74-106) mg/dL POC Glucose 243 H (70-105) mg/dL Lactic Acid (0.4-2.0) mmol/L Calcium (8.5-10.1) mg/dL Magnesium (1.8-2.4) mg/dl C-Reactive Protein (<1.0) mg/dL Procalcitonin 2.62 H (<0.10) ng/mL Adenovirus (PCR) Not detected (Not Detected) B. pertussis DNA (PCR) Not detected (Not Detected) B.parapertussis DNA PCR Not detected (Not Detected) C. pneumoniae DNA (PCR) Not detected (Not Detected) Coronavirus (PCR) Not detected (Not Detected) Human Metapneumovir PCR Not detected (Not Detected) Influ A (H1N1/09) PCR Detected H (Not Detected) Influenza B (RT-PCR) Not detected (Not Detected) M. pneumoniae (PCR) Not detected (Not Detected) Parainfluen 1,2,3,4 PCR Not detected (Not Detected) RSV (PCR) Not detected (Not Detected) Entero/Rhino (PCR) Not detected (Not Detected) 09/09/18 09/09/18 09/09/18 Range/Units 04:51 04:51 05:35 WBC 5.36 (4.23-9.07) K/mm3 RBC 4.75 (4.63-6.08) M/mm3 Hgb 14.3 (13.7-17.5) gm/L Hct 44.0 (40.1-51.0) % MCV 92.6 H (79.0-92.2) fl MCH 30.1 (25.7-32.2) pg MCHC 32.5 (32.2-35.5) g/dl RDW Std Deviation 47.9 H (35.1-43.9) fL Plt Count 121 L (163-337) K/mm3 MPV 9.5 (9.4-12.3) fl Neut % (Auto) 83.8 H (34.0-67.9) % Lymph % (Auto) 12.5 L (21.8-53.1) % Addison % (Auto) 3.5 L (5.3-12.2) % Eos % (Auto) 0 L (0.8-7.0) Baso % (Auto) 0.0 L (0.1-1.2) % Neut # (Auto) 4.49 (1.78-5.38) K/mm3 Lymph # (Auto) 0.67 L (1.32-3.57) K/mm3 Addison # (Auto) 0.19 L (0.30-0.82) K/mm3 Eos # (Auto) 0.00 L (0.04-0.54) K/mm3 Baso # (Auto) 0.00 L (0.01-0.08) K/mm3 Puncture Site Rt radial ABG pH 7.39 (7.35-7.45) ABG pCO2 48.6 H (35.0-45.0) mmHg ABG pO2 46.0 L (80.0-100.0) mmHg ABG HCO3 28.6 H (22.0-26.0) meq/L ABG O2 Saturation 81.5 L (96.0-97.0) % ABG Base Excess 3.2 H (-2-2.0) Roosevelt Test Positive A-a Gradient 533 mmHg O2 Delivery Device Bipap Oxygen Flow Rate 15.0 FiO2 (21.00-100.00) % PEEP cmH20 Pressure Support cmH2O Sodium 135 L (136-145) mEq/L Potassium 5.0 (3.5-5.1) mEq/L Chloride 103 (98-107) mEq/L Carbon Dioxide 28 (21-32) mEq/L Anion Gap 9.0 (5-15) BUN 30 H (7-18) mg/dL Creatinine 1.2 (0.7-1.3) mg/dL Est Cr Clr Drug Dosing 76.34 mL/min Estimated GFR (MDRD) > 60 (>60) mL/min BUN/Creatinine Ratio 25.0 H (14-18) Glucose 149 H (74-106) mg/dL POC Glucose (70-105) mg/dL Lactic Acid (0.4-2.0) mmol/L Calcium 8.7 (8.5-10.1) mg/dL Magnesium 1.7 L (1.8-2.4) mg/dl C-Reactive Protein 17.7 H* (<1.0) mg/dL Procalcitonin (<0.10) ng/mL Adenovirus (PCR) (Not Detected) B. pertussis DNA (PCR) (Not Detected) B.parapertussis DNA PCR (Not Detected) C. pneumoniae DNA (PCR) (Not Detected) Coronavirus (PCR) (Not Detected) Human Metapneumovir PCR (Not Detected) Influ A (H1N1/09) PCR (Not Detected) Influenza B (RT-PCR) (Not Detected) M. pneumoniae (PCR) (Not Detected) Parainfluen 1,2,3,4 PCR (Not Detected) RSV (PCR) (Not Detected) Entero/Rhino (PCR) (Not Detected) 09/09/18 09/09/18 09/09/18 Range/Units 06:09 07:30 11:24 WBC (4.23-9.07) K/mm3 RBC (4.63-6.08) M/mm3 Hgb (13.7-17.5) gm/L Hct (40.1-51.0) % MCV (79.0-92.2) fl MCH (25.7-32.2) pg MCHC (32.2-35.5) g/dl RDW Std Deviation (35.1-43.9) fL Plt Count (163-337) K/mm3 MPV (9.4-12.3) fl Neut % (Auto) (34.0-67.9) % Lymph % (Auto) (21.8-53.1) % Addison % (Auto) (5.3-12.2) % Eos % (Auto) (0.8-7.0) Baso % (Auto) (0.1-1.2) % Neut # (Auto) (1.78-5.38) K/mm3 Lymph # (Auto) (1.32-3.57) K/mm3 Addison # (Auto) (0.30-0.82) K/mm3 Eos # (Auto) (0.04-0.54) K/mm3 Baso # (Auto) (0.01-0.08) K/mm3 Puncture Site ABG pH (7.35-7.45) ABG pCO2 (35.0-45.0) mmHg ABG pO2 (80.0-100.0) mmHg ABG HCO3 (22.0-26.0) meq/L ABG O2 Saturation (96.0-97.0) % ABG Base Excess (-2-2.0) Roosevelt Test A-a Gradient mmHg O2 Delivery Device Oxygen Flow Rate FiO2 (21.00-100.00) % PEEP cmH20 Pressure Support cmH2O Sodium (136-145) mEq/L Potassium (3.5-5.1) mEq/L Chloride (98-107) mEq/L Carbon Dioxide (21-32) mEq/L Anion Gap (5-15) BUN (7-18) mg/dL Creatinine (0.7-1.3) mg/dL Est Cr Clr Drug Dosing mL/min Estimated GFR (MDRD) (>60) mL/min BUN/Creatinine Ratio (14-18) Glucose (74-106) mg/dL POC Glucose 167 H 207 H (70-105) mg/dL Lactic Acid 1.0 (0.4-2.0) mmol/L Calcium (8.5-10.1) mg/dL Magnesium (1.8-2.4) mg/dl C-Reactive Protein (<1.0) mg/dL Procalcitonin (<0.10) ng/mL Adenovirus (PCR) (Not Detected) B. pertussis DNA (PCR) (Not Detected) B.parapertussis DNA PCR (Not Detected) C. pneumoniae DNA (PCR) (Not Detected) Coronavirus (PCR) (Not Detected) Human Metapneumovir PCR (Not Detected) Influ A (H1N1/09) PCR (Not Detected) Influenza B (RT-PCR) (Not Detected) M. pneumoniae (PCR) (Not Detected) Parainfluen 1,2,3,4 PCR (Not Detected) RSV (PCR) (Not Detected) Entero/Rhino (PCR) (Not Detected) 09/09/18 09/09/18 Range/Units 16:14 16:26 WBC (4.23-9.07) K/mm3 RBC (4.63-6.08) M/mm3 Hgb (13.7-17.5) gm/L Hct (40.1-51.0) % MCV (79.0-92.2) fl MCH (25.7-32.2) pg MCHC (32.2-35.5) g/dl RDW Std Deviation (35.1-43.9) fL Plt Count (163-337) K/mm3 MPV (9.4-12.3) fl Neut % (Auto) (34.0-67.9) % Lymph % (Auto) (21.8-53.1) % Addison % (Auto) (5.3-12.2) % Eos % (Auto) (0.8-7.0) Baso % (Auto) (0.1-1.2) % Neut # (Auto) (1.78-5.38) K/mm3 Lymph # (Auto) (1.32-3.57) K/mm3 Addison # (Auto) (0.30-0.82) K/mm3 Eos # (Auto) (0.04-0.54) K/mm3 Baso # (Auto) (0.01-0.08) K/mm3 Puncture Site Lt radial ABG pH 7.35 (7.35-7.45) ABG pCO2 56.1 H (35.0-45.0) mmHg ABG pO2 51.0 L (80.0-100.0) mmHg ABG HCO3 29.9 H (22.0-26.0) meq/L ABG O2 Saturation 80.7 L (96.0-97.0) % ABG Base Excess 3.2 H (-2-2.0) Roosevelt Test Positive A-a Gradient mmHg O2 Delivery Device Bipap Oxygen Flow Rate FiO2 100.00 (21.00-100.00) % PEEP 7.0 cmH20 Pressure Support 14.0 cmH2O Sodium (136-145) mEq/L Potassium (3.5-5.1) mEq/L Chloride (98-107) mEq/L Carbon Dioxide (21-32) mEq/L Anion Gap (5-15) BUN (7-18) mg/dL Creatinine (0.7-1.3) mg/dL Est Cr Clr Drug Dosing mL/min Estimated GFR (MDRD) (>60) mL/min BUN/Creatinine Ratio (14-18) Glucose (74-106) mg/dL POC Glucose 160 H (70-105) mg/dL Lactic Acid (0.4-2.0) mmol/L Calcium (8.5-10.1) mg/dL Magnesium (1.8-2.4) mg/dl C-Reactive Protein (<1.0) mg/dL Procalcitonin (<0.10) ng/mL Adenovirus (PCR) (Not Detected) B. pertussis DNA (PCR) (Not Detected) B.parapertussis DNA PCR (Not Detected) C. pneumoniae DNA (PCR) (Not Detected) Coronavirus (PCR) (Not Detected) Human Metapneumovir PCR (Not Detected) Influ A (H1N1/09) PCR (Not Detected) Influenza B (RT-PCR) (Not Detected) M. pneumoniae (PCR) (Not Detected) Parainfluen 1,2,3,4 PCR (Not Detected) RSV (PCR) (Not Detected) Entero/Rhino (PCR) (Not Detected) NAYANA Results - Last 24 hrs: Microbiology 09/07/18 18:30 Aerobic Blood Culture - Preliminary Blood - Venous NO GROWTH AFTER 2 DAYS Anaerobic Blood Culture - Preliminary NO GROWTH AFTER 2 DAYS 09/07/18 18:45 Aerobic Blood Culture - Preliminary Blood - Venous - Lab Draw NO GROWTH AFTER 2 DAYS Anaerobic Blood Culture - Preliminary NO GROWTH AFTER 2 DAYS 09/08/18 18:50 Gram Stain - Final Sputum - Expectorated Sputum Culture - Preliminary Yeast Isolated 09/08/18 13:40 Gram Stain - Final Sputum - Expectorated Sputum Culture - Final Med Orders - Current: Current Medications Acetaminophen (Tylenol) 650 mg PO Q4H PRN PRN Reason: Pain/Fever Last Admin: 09/09/18 16:15 Dose: 650 mg Albuterol/Ipratropium (Duoneb 3.0-0.5 Mg/3 Ml) 3 ml NEB Q4H PRN PRN Reason: Shortness Of Breath/wheezing Last Admin: 09/09/18 04:28 Dose: 3 ml Albuterol/Ipratropium (Duoneb 3.0-0.5 Mg/3 Ml) 3 ml NEB Q8HRRT [facility] Bisacodyl (Dulcolax) 5 mg PO DAILY PRN PRN Reason: Constipation Cholecalciferol (Vitamin D3) 1,000 units PO DAILY [facility] Last Admin: 09/09/18 08:24 Dose: 1,000 units Docusate Sodium (Colace) 100 mg PO BID PRN PRN Reason: Constipation Guaifenesin (Mucinex) 1,200 mg PO BID [facility] Hydralazine HCl (Apresoline) 20 mg IVPUSH Q4H PRN PRN Reason: Hypertension Promethazine HCl 6.25 mg/ (Sodium Chloride) 50.25 mls @ 100 mls/hr IV Q6H PRN PRN Reason: Nausea/Vomiting Levofloxacin/Dextrose 750 mg/ (Premix) 150 mls @ 100 mls/hr IV Q24H [facility] Last Admin: 09/08/18 20:02 Dose: 100 mls/hr Piperacillin Sod/Tazobactam (Sod 4.5 gm/ Sodium Chloride) 100 mls @ 25 mls/hr IV Q8H [facility] Last Admin: 09/09/18 15:41 Dose: 25 mls/hr Vancomycin HCl 2 gm/ Sodium (Chloride) 500 mls @ 250 mls/hr IV Q12H [facility] Last Admin: 09/09/18 13:19 Dose: 250 mls/hr Propofol (Diprivan 100 Ml) 100 mls @ 4.323 mls/hr IV TITRATE ABIEL; Protocol Last Titration: 09/09/18 18:48 Dose: 45 mcg/kg/min, 38.909 mls/hr Fentanyl 2,500 mcg/ Sodium (Chloride) 250 mls @ 14.41 mls/hr IV TITRATE ABIEL; Protocol Last Admin: 09/09/18 19:10 Dose: 1 mcg/kg/hr, 14.41 mls/hr Potassium Chloride/Dextrose/Sod Cl (D5 Ns With 20 Meq Kcl) 1,000 mls @ 75 mls/ hr IV ASDIRECTED [facility] Last Admin: 09/09/18 18:58 Dose: 75 mls/hr Fluconazole/Sodium Chloride (200 mg/ Premix) 100 mls @ 100 mls/hr IV Q24H [facility] Insulin Human Lispro (Humalog) 0 unit SUBCUT Q6H [facility]; Protocol Lisinopril (Prinivil) 20 mg PO DAILY [facility] Last Admin: 09/08/18 08:59 Dose: 20 mg Lorazepam (Ativan) 2 mg IVPUSH Q4H PRN PRN Reason: Seizures Lorazepam (Ativan) 0.25 mg IVPUSH Q6H PRN PRN Reason: Anxiety Last Admin: 09/09/18 15:23 Dose: 0.25 mg Magnesium Oxide (Magnesium Oxide) 800 mg PO BID [facility] Stop: 09/09/18 21:01 Last Admin: 09/09/18 08:23 Dose: 800 mg Magnesium Sulfate (Pharmacy To Dose - Magnesium Replacement) 1 dose .XX ASDIRECTED PRN PRN Reason: RX TO WATCH MG LEVELS Metformin [facility] ([facility]) [facility] Last Admin: 09/09/18 16:27 Dose: 1,000 mg Methylprednisolone Sodium Succinate (Solu-Medrol) 80 mg IVPUSH Q6H [facility] Metoprolol Tartrate (Lopressor) 25 mg PO BID [facility] Last Admin: 09/09/18 08:24 Dose: 25 mg Metoprolol Tartrate (Lopressor) 5 mg IVPUSH Q4H PRN PRN Reason: Tachycardia Morphine Sulfate (Morphine) 1 mg IVPUSH Q4H PRN PRN Reason: Pain/Dyspnea Last Admin: 09/09/18 16:31 Dose: 1 mg Ondansetron HCl (Zofran) 4 mg IV Q6H PRN PRN Reason: Nausea/Vomiting Last Admin: 09/09/18 06:46 Dose: 4 mg Oseltamivir Phosphate (Tamiflu) 75 mg PO BID [facility] Last Admin: 09/09/18 08:24 Dose: 75 mg Meloxicam 15 Mg 0 each PO DAILY [facility] Last Admin: 09/09/18 08:49 Dose: Not Given Polyethylene Glycol (Miralax) 17 gm PO DAILY PRN PRN Reason: Constipation Potassium Chloride (Pharmacy To Dose - Potassium Replacement) 1 dose .XX ASDIRECTED PRN PRN Reason: RX TO WATCH K+ LEVELS Saccharomyces Boulardii (Florastor) 250 mg PO BID [facility] Last Admin: 09/09/18 08:24 Dose: 250 mg Senna/Docusate Sodium (Senna Plus) 1 tab PO BID PRN PRN Reason: Constipation Vancomycin HCl (Pharmacy To Dose - Vancomycin) 0 dose .XX ASDIRECTED [facility] Discontinued Medications Acetaminophen (Tylenol) 975 mg PO NOW ONE Stop: 09/07/18 20:02 Last Admin: 09/07/18 20:10 Dose: 975 mg Albuterol/Ipratropium (Duoneb 3.0-0.5 Mg/3 Ml) 3 ml NEB Q4HRRT [facility] Last Admin: 09/09/18 13:23 Dose: 3 ml Benzonatate (Tessalon Perles) 100 mg PO TID [facility] Last Admin: 09/09/18 15:27 Dose: 100 mg Bumetanide (Bumex) 0.5 mg IVPUSH ONETIME ONE Stop: 09/09/18 16:05 Last Admin: 09/09/18 16:14 Dose: 0.5 mg Furosemide (Lasix) 20 mg PO DAILY [facility] Last Admin: 09/08/18 08:58 Dose: 20 mg Guaifenesin/Phenylephrine HCl (Robitussin Dm) 10 ml PO TID@0700,1400,2100 [facility] Last Admin: 09/09/18 08:23 Dose: 10 ml Guaifenesin/Phenylephrine HCl (Robitussin Dm) 10 ml PO TID@0700,1400,2100 PRN PRN Reason: Cough Hydromorphone HCl (Dilaudid) 1 mg IVPUSH ONETIME ONE Stop: 09/07/18 18:08 Last Admin: 09/07/18 19:02 Dose: 1 mg Hydromorphone HCl (Dilaudid) 1 mg IVPUSH Q4H PRN PRN Reason: Chest pain/Dyspnea Last Admin: 09/09/18 11:38 Dose: 1 mg Dextrose/Sodium Chloride (Dextrose 5%-Normal Saline) 1,000 mls @ 999 mls[facility] Last Admin: 09/07/18 19:08 Dose: 999 mls/hr Levofloxacin/Dextrose 750 mg/ (Premix) 150 mls @ 100 mls/hr IV ONETIME ONE Stop: 09/07/18 20:37 Last Admin: 09/07/18 20:08 Dose: 100 mls/hr Dextrose/Sodium Chloride (Dextrose 5%-Normal Saline) 1,000 mls @ 200 mls[facility] Last Admin: 09/07/18 21:00 Dose: 200 mls/hr Piperacillin Sod/Tazobactam (Sod 4.5 gm/ Sodium Chloride) 100 mls @ 200 mls/hr IV ONETIME ONE Stop: 09/07/18 23:29 Last Admin: 09/07/18 23:21 Dose: 200 mls/hr Sodium Chloride (Normal Saline) 1,000 mls @ 125 mls/hr IV ASDIRECTED [facility] Ibuprofen (Motrin) 600 mg PO ONETIME ONE Stop: 09/07/18 18:08 Last Admin: 09/07/18 19:07 Dose: 600 mg Insulin Human Lispro (Humalog) 0 unit SUBCUT QIDACANDBED [facility]; Protocol Last Admin: 09/09/18 11:37 Dose: 2 unit Magnesium Oxide (Magnesium Oxide) 400 mg PO ONETIME [facility] Stop: 09/07/18 23:59 Last Admin: 09/08/18 00:06 Dose: 400 mg Magnesium Oxide (Magnesium Oxide) 800 mg PO ONETIME ONE Stop: 09/08/18 09:16 Last Admin: 09/08/18 09:18 Dose: 800 mg Methylprednisolone Sodium Succinate (Solu-Medrol) 60 mg IVPUSH ONETIME ONE Stop: 09/08/18 08:04 Last Admin: 09/08/18 08:58 Dose: 60 mg Methylprednisolone Sodium Succinate (Solu-Medrol) 60 [facility]ID [facility] [facility] Last Admin: 09/09/18 05:36 Dose: 60 mg Metoclopramide HCl (Reglan) 10 mg IVPUSH ONETIME ONE Stop: 09/07/18 18:08 Last Admin: 09/07/18 19:04 Dose: 10 mg Midazolam HCl (Versed 1 Mg/Ml) 5 mg IVPUSH ONETIME ONE Stop: 09/09/18 17:41 Last Admin: 09/09/18 17:57 Dose: 5 mg Modafinil (Provigil) 200 mg PO DAILY [facility] Modafinil (Provigil) 100 mg PO ONETIME ONE Stop: 09/09/18 16:10 Last Admin: 09/09/18 16:23 Dose: 100 mg Potassium Chloride (Klor-Con 10) 10 meq PO DAILY [facility] Last Admin: 09/08/18 08:58 Dose: 10 meq Rocuronium [place] (Zemuron) 86 mg 0.6 mg/kg (86 mg) IVPUSH NOW ONE Stop: 09/09/18 17:43 Last Admin: 09/09/18 17:58 Dose: 86 mg Vancomycin HCl (Vancomycin) 2,122.815 mg 15 mg/kg (2122.815 mg) IV Q12H ABIEL Last Admin: 09/08/18 14:22 Dose: Not Given - Exam Quality Assessment: Reports: Supplemental Oxygen, Urine Catheter General: Reports: Alert, Oriented, Other (Obese) HEENT: Reports: Pupils Equal, Pupils Reactive Neck: Reports: Supple Lungs: Reports: Decreased Breath Sounds, Crackles, Rhonchi, Other (mechcanial breath sound) Cardiovascular: Reports: Regular Rate, Regular Rhythm GI/Abdominal Exam: Normal Bowel Sounds, Soft, Non-Tender, No Organomegaly, No Abnormal Bruit, No Mass, Guarding, Other (Obese) (Male) Exam: Other (indwelling gaitan catheter) Rectal (Males) Exam: Deferred Back Exam: Reports: Other (deferred) Extremities: Non-Tender, Slow Capillary Refill Skin: Reports: Warm, Dry, Intact Neurological: Reports: Other (deferred) Psy/Mental Status: Reports: Other (sedated) Physical Findings Comments:: Physical Examination is limited. Patient is sedated and intubated on mechanical ventilator.
[2018-09-09 20:49] VITALS: BP 118/45
[2018-09-09] MEDS ORDERED: guaiFENesin 600 MG Tab.ER PO SCH (21:00)
[2018-09-09] MEDS ORDERED: Albuterol/Ipratropium 3.0-0.5 MG/3 ML Neb Soln NEB SCH (21:00)
[2018-09-10] MEDS ORDERED: Modafinil 200 MG Tab PO SCH (07:00)
--- NOTE | 2018-09-10 10:27 | CR ---
Chest: Portable view of the chest was obtained. Comparison: Prior chest x-ray performed earlier on the same day (6:16 PM). Endotracheal tube is seen with tip lying at the level of the clavicles. Nasogastric tube is seen coursing off the inferior edge of the film into the stomach. Diffuse parenchymal densities seen within both sides of the chest. Heart is slightly enlarged. Tortuous thoracic aorta is noted. Bony structures are grossly intact. Impression: 1. Tip of endotracheal tube at the level of the clavicles. Nasogastric tube courses off the inferior edge of film into the stomach. 2. Diffuse parenchymal change which is fairly stable from most recent exam compatible with pulmonary edema or multifocal pneumonia. Diagnostic code #3 I agree with preliminary report from [facility], finalized on 09/09/18, 7:42 PM Central Time
--- NOTE | 2018-09-10 10:27 | CR ---
Chest: Portable view of the chest was obtained. Comparison: Previous chest x-ray performed earlier on the same day (8:04 AM). Diffuse parenchymal change seen within both lungs. Findings appear to be slightly increased on the left side from prior exam. Findings on the right side are fairly stable. Heart is slightly enlarged. Endotracheal tube is now seen with tip lying at the level of the clavicles. Nasogastric tube is seen with tip coursing off the inferior edge of the film. Bony structures are grossly intact. Impression: 1. Satisfactory position of endotracheal tube and nasogastric tube. 2. Patchy increased density within both sides of the chest. Slightly increased on the left side but stable on the right side. Differential includes pulmonary edema and multifocal pneumonia. Diagnostic code #3 I agree with preliminary report from [facility], finalized on 09/09/18, 7:42 PM Central Time
== END 2018-09-09 20:01 | DRG 871 ==
LOC: JD.ED 17:20 → JD.MS 20:38 → JD.ICU 09-08 07:29
PROVIDERS: ADMIT Internal Medicine; ATTEND Internal Medicine
PROC: 5A1935Z Respiratory Ventilation, Less than 24 Consecutive Hours (ICD-10-PCS; principal; 2018-09-09)
PROC: 0BH17EZ Insertion of Endotracheal Airway into Trachea, Via Natural or Artificial Opening (ICD-10-PCS; 2018-09-09)
DX: A41.9 Sepsis, unspecified organism (principal); J80 Acute respiratory distress syndrome; J17 Pneumonia in diseases classified elsewhere; Z68.41 Body mass index [BMI] 40.0-44.9, adult; B49 Unspecified mycosis; J11.1 Influenza due to unidentified influenza virus with other respiratory manifestations; E66.01 Morbid (severe) obesity due to excess calories; R11.2 Nausea with vomiting, unspecified; E11.9 Type 2 diabetes mellitus without complications; I10 Essential (primary) hypertension; R31.9 Hematuria, unspecified; E83.42 Hypomagnesemia; E86.0 Dehydration; K80.20 Calculus of gallbladder without cholecystitis without obstruction; Z91.19 Patient's noncompliance with other medical treatment and regimen; Z79.899 Other long term (current) drug therapy
CPT/HCPCS: 36415; 36600; 51702; 71045; 71045-26; 71250; 71250-26; 80048; 80053; 80061; 81001; 82306; 82803; 82962; 83036; 83605; 83735; 83880; 84145; 84439; 84443; 84484; 85007; 85025; 85027; 86140; 86738; 87040; 87070; 87106; 87205; 87486; 87581; 87632; 87798; 87804; 87899; 93005; 93010; 94002; 94640; 94660; 94667; 94668; 94761; 96361; 96365; 96375; 97162-GP; 97166-GO; 97530-GO; 99284-25; 99285; A9270-GY; J1170; J1815-GY; J1956; J2060; J2250; J2270; J2405; J2543; J2704; J2765; J2920; J3010; J3370; J3480; J3490; J7030; J7040; J7042; J7050; J7620-GY